=== PATIENT | female | born 1985 | race American Indian/Alaskan Native ===

== ENCOUNTER 2016-10-16 21:58 | Emergency (ER) | payer MEDICAID ==
[2016-10-16 23:00] VITALS: BP 139/92
--- NOTE | 2016-10-19 18:54 | ED Elopement Review ---
ED Pt Elopement review - Call Back decision Pt Call Back Decision: Pt to F/U with PMD
== END 2016-10-17 05:10 | disposition left against medical advice (07) ==
LOC: ED 21:58
DX: M25.572 Pain in left ankle and joints of left foot (principal); Z88.8 Allergy status to other drugs, medicaments and biological substances; Z53.21 Procedure and treatment not carried out due to patient leaving prior to being seen by health care provider

== ENCOUNTER 2017-03-19 08:07 | Inpatient (IN) | payer MEDICAID ==
[2017-03-19] MEDS ORDERED: PEPCID IV ONE ×2 (20:16→23:00)
[2017-03-19] MEDS ORDERED: ZOFRAN IV PRN (20:16)
--- NOTE | 2017-03-19 20:21 | History and Physical Report ---
History of Present Illness Date of admission: 03/19/17 Chief complaint: intractable nausea and vomiting History of present illness: Pt is a 31 year old female DORIS 11/01/17 at 7w5d who called the sales and service consultant MD around 7:58 pm on 03/19/17 complaining of severe nausea and vomiting prohibiting her from tolerating any food or liquid today including water. She was prescribed Phenergan at home which she was taking with no relief. She does admit a h/o GERD which has not yet been treated. She has had one visit on 03/16/17, and her is complicated by genital herpes, abnormal pap smear and a h/o demise with PIH and placental abruption for which she has been referred to [facility]. 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: abnormal PAP smear, herpes Family/Genetic History: diabetes, hypertension, cancer Social history: no significant social history - Obstetrical History Expected Date of Delivery: 11/01/17 Actual Gestation: 7 Week(s) 5 Day(s) : 3 Para: 1 Hx # Term Pregnancies: 0 Number of Pregnancies: 1 Spontaneous Abortions: 1 Induced : 0 Number of Living Children: 0 Medications and Allergies Allergies Allergy/AdvReac Type Severity Reaction Status Date / Time NSAIDS (Non-Steroidal Allergy Unknown Verified 04/06/16 03:44 Anti-Inflamma Androgenic Anabolic Steroid AdvReac Unknown Verified 04/06/16 03:44 Home Medications Medication Instructions Recorded Confirmed Last Taken Type Gabapentin [Neurontin] 300 mg PO TID #90 capsule 09/07/15 04/06/16 Unknown Rx Nitrofurantoin [place]/M-Cryst 100 mg PO Q12HR #20 capsule 04/06/16 Unknown Rx [Macrobid CAP] HYDROcodone/APAP 5-325 [[place] 1 each PO Q6HR PRN #15 tablet 04/07/16 Unknown Rx 5/325] Levofloxacin [Levaquin] 750 mg PO QDAY #7 tablet 04/07/16 Unknown Rx Review of Systems All systems: negative (per HPI) Results Result Diagrams: 03/19/17 21:38 03/19/17 21:38 All other labs normal. Assessment and Plan A: IUP at 7w5d Hyperemesis P: Admit for observation. Check electrolytes IV hydration Ultrasound for viability.
[2017-03-19] MEDS ORDERED: KCL 10MEQ/100ML 10 MEQ/100 ML BAG IV SCH (21:00)
[2017-03-19 22:18] LABS: Anion Gap 20 mmol/L; BUN/Creatinine Ratio 11.11; Blood Urea Nitrogen 10 mg/dL (7-17); Calcium 9.8 mg/dL (8.4-10.2); Carbon Dioxide 24 mmol/L (22-30); Chloride 95.4 mmol/L (98-107); Glucose 123 mg/dL (65-100); Sodium 135 mmol/L (137-145)
[2017-03-19 22:19] LABS: Amylase 121 units/L (27-131); Lipase 48 units/L (13-60)
[2017-03-19 22:39] LABS: Basophils % (Auto) 0.5 % (0.0-1.8); Eosinophils % (Auto) 0.2 % (0.0-4.3); Hematocrit 36.1 % (30.3-42.9); Hemoglobin 12.2 gm/dl (10.1-14.3); Mean Corpuscular HGB Conc 34 % (30-34); Mean Corpuscular Hemoglobin 31 pg (28-32); Mean Corpuscular Volume 90 fl (79-97); Platelet Count 367 K/mm3 (140-440); Red Cell Distribution Width 13.8 % (13.2-15.2); White Blood Count 12.5 K/mm3 (4.5-11.0)
[2017-03-19] MEDS: PHENERGAN PR SCH (23:03)
[2017-03-19] MEDS: D5LR 1,000 ML IV SCH (23:04)
[2017-03-19] MEDS: REGLAN IV SCH (23:04)
[2017-03-20 00:11] LABS: Bilirubin,Urine NEG (Negative); Blood,Urine NEG (Negative); Ketones,Urine NEG (Negative); Leukocyte Esterase,Urine NEG (Negative); Mucus,Urine FEW /HPF; Nitrite,Urine NEG (Negative)
[2017-03-20] MEDS: D5LR 1,000 ML IV SCH ×4 (00:57→19:20)
[2017-03-20] MEDS: REGLAN IV SCH ×3 (06:03→17:58)
[2017-03-20] MEDS: PHENERGAN PR SCH ×3 (06:04→17:58)
--- NOTE | 2017-03-20 07:53 | Admit Criteria Form ---
Admission Criteria Documentation: HYPEREMESIS GRAVIDARUM Clinical Indications for Admission to Inpatient Care ( Place 'X' for any and all applicable criteria): Admission is indicated for ANY ONE of the following (1)(2)(3) [ ]I. Suspected serious gastrointestinal pathology (eg, acute fatty liver of , pancreatitis) as indicated by ANY ONE of the following (5)(6): [ ]a) Significantly elevated serum transaminase or bilirubin (eg, 2 or 3 times normal) [ ]b) Elevated serum amylase or lipase [ ]c) Elevated serum ammonia level [ ]d) Coagulopathy (eg, elevated PT, PTT) [ ]e) Ascites [ ]f) Encephalopathy [X]II. Inpatient admission required rather than observation care (Also use Hyperemesis Gravidarum: Observation Care as appropriate) because of ANY ONE of the following (7) : [ ]a) Hemodynamic instability develops [X]b) Vomiting that is severe or persistent [ ]c) Severe electrolyte abnormalities requiring inpatient care [ ]d) Metabolic disorder (eg, acidosis) that is severe or persistent [ ]e) Acute renal failure [ ]f) Altered mental status or medication side effects (eg, antiemetics) that are severe or persistent [ ]g) compromise identified [ ]h) Hydatidiform mole identified [ ]i) IV fluid to replace significant ongoing (eg, for over 24 hrs) losses (> 3 L/m2 per day) [ ]j) Parenteral nutrition regimen that must be implemented on inpatient basis [ ]k) Other condition, treatment or monitoring requiring inpatient admission Extended stay beyond goal length of stay may be needed for(2)(13): [ ]a) Severe electrolyte disorder that persists [ ]b) Severe malnutrition [ ]c) Acute fatty liver of [ ]d) Hydatidiform mole [ ]e) Wernicke encephalopathy or other BUTTON CUTTING MACHINE OPERATOR complication (eg, osmotic demyelination syndrome) [ ]f) compromise The original [employer] content created by [employer] has been revised. The portions of the content which have been revised are identified through the use of italic text or in bold, and [facility] has neither reviewed nor approved the modified material. All other unmodified content is copyright [facility]. Please see references footnoted in the original [facility] edition 2016 Admission Criteria Met: Yes
--- NOTE | 2017-03-20 08:53 | Ultrasound Report ---
ULTRASOUND OB LESS THAN 14 WEEKS FETUS HISTORY: Assess viability, positive test, beta hCG level [id number] FINDINGS: Transabdominal ultrasound was performed. The uterus is anteverted and measures 12.4 x 5.2 x 6.8 cm. No uterine mass is detected. Normal cervix. An intrauterine gestational sac containing a small pole and yolk sac is identified. Payette-rump length 8.0 mm which correlates with a 6 week, 5 day . Estimated due date is 11/08/17. No subchorionic hemorrhage is appreciated. The placenta has not yet developed. The right ovary measures 3.8 x 2.1 x 2.4 cm. The left ovary measures 4.1 x 3.2 x 3.5 cm. There is a hypoechoic area in the left ovary measuring 2 cm which probably represents a corpus luteum cyst. No pelvic fluid collection. Images through the bladder are unremarkable. IMPRESSION: Viable, single interuterine dated at 6 weeks, 5 days. No acute abnormality is appreciated.
[2017-03-20] MEDS: PRENATAL VITAMIN PO SCH (11:58)
--- NOTE | 2017-03-20 13:35 | Progress Note ---
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 Subjective - Subjective Date of service: 03/20/17 Principal diagnosis: hyperemesis Interval history: 31y/o @ 7+6 weeks admitted for hyperemesis. Patient denies any vomiting this am. She is tolerating sips and chips. Patient reports: no new complaints Objective - Vital Signs Vital Signs: Vital Signs - 12hr 03/20/17 03/20/17 04:10 08:35 Temperature 98.3 F 98.5 F Pulse Rate [ 77 76 Right From Monitor] Respiratory 77 H 18 Rate Blood Pressure 114/59 100/53 [Right Arm] - Labs Labs: Abnormal Labs 03/19/17 03/19/17 03/19/17 21:38 21:38 21:38 WBC 12.5 H Seg Neutrophils % 72.5 H Seg Neutrophils # 9.1 H Sodium 135 L Chloride 95.4 L Glucose 123 H HCG, Quant [id number] H Laboratory Results - last 24 hr 03/19/17 03/19/17 03/19/17 21:38 21:38 21:38 WBC 12.5 H RBC 4.00 Hgb 12.2 Hct 36.1 MCV 90 MCH 31 MCHC 34 RDW 13.8 Plt Count 367 Lymph % (Auto) 21.0 [place] % (Auto) 5.8 Eos % (Auto) 0.2 Baso % (Auto) 0.5 Lymph # 2.6 [place] # 0.7 Eos # 0.0 Baso # 0.1 Seg Neutrophils % 72.5 H Seg Neutrophils # 9.1 H Sodium Potassium Chloride Carbon Dioxide Anion Gap BUN Creatinine Estimated GFR BUN/Creatinine Ratio Glucose Calcium Amylase 121 Lipase 48 TSH 0.847 HCG, Quant Urine Color Urine Turbidity Urine pH Ur Specific [place] Urine Protein Urine Glucose (UA) Urine Ketones Urine Blood Urine Nitrite Urine Bilirubin Urine Urobilinogen Ur Leukocyte Esterase Urine WBC (Auto) Urine RBC (Auto) U Epithel Cells (Auto) Amorphous Crystals Urine Mucus Hepatitis A IgM Ab Hep Bs Antigen Hep B Core IgM Ab Hepatitis C Antibody 03/19/17 03/19/17 03/19/17 21:38 21:38 23:30 WBC RBC Hgb Hct MCV MCH MCHC RDW Plt Count Lymph % (Auto) [place] % (Auto) Eos % (Auto) Baso % (Auto) Lymph # [place] # Eos # Baso # Seg Neutrophils % Seg Neutrophils # Sodium 135 L Potassium 4.0 Chloride 95.4 L Carbon Dioxide 24 Anion Gap 20 BUN 10 Creatinine 0.9 Estimated GFR > 60 BUN/Creatinine Ratio 11.11 Glucose 123 H Calcium 9.8 Amylase Lipase TSH HCG, Quant 59542 H Urine Color Yellow Urine Turbidity Cloudy Urine pH 7.0 Ur Specific [place] 1.027 Urine Protein 30 mg/dl Urine Glucose (UA) Neg Urine Ketones Neg Urine Blood Neg Urine Nitrite Neg Urine Bilirubin Neg Urine Urobilinogen 2.0 Ur Leukocyte Esterase Neg Urine WBC (Auto) 2.0 Urine RBC (Auto) 9.0 U Epithel Cells (Auto) 12.0 Amorphous Crystals Few Urine Mucus Few Hepatitis A IgM Ab Non-reactive Hep Bs Antigen Non-reactive Hep B Core IgM Ab Non-reactive Hepatitis C Antibody Non-reactive 03/19/17 03/20/17 23:30 12:15 WBC RBC Hgb Hct MCV MCH MCHC RDW Plt Count Lymph % (Auto) [place] % (Auto) Eos % (Auto) Baso % (Auto) Lymph # [place] # Eos # Baso # Seg Neutrophils % Seg Neutrophils # Sodium Potassium Chloride Carbon Dioxide Anion Gap BUN Creatinine Estimated GFR BUN/Creatinine Ratio Glucose Calcium Amylase Lipase TSH HCG, Quant Urine Color Urine Turbidity Urine pH Ur Specific [place] Urine Protein Urine Glucose (UA) Urine Ketones Negative Neg Urine Blood Urine Nitrite Urine Bilirubin Urine Urobilinogen Ur Leukocyte Esterase Urine WBC (Auto) Urine RBC (Auto) U Epithel Cells (Auto) Amorphous Crystals Urine Mucus Hepatitis A IgM Ab Hep Bs Antigen Hep B Core IgM Ab Hepatitis C Antibody
[2017-03-20] MEDS: PEPCID PO SCH (16:57)
[2017-03-21] MEDS: REGLAN IV SCH ×2 (00:46→07:08)
[2017-03-21] MEDS: PHENERGAN PR SCH ×2 (00:46→07:08)
[2017-03-21] MEDS: D5LR 1,000 ML IV SCH (03:30)
[2017-03-21] MEDS: PEPCID PO SCH (07:08)
[2017-03-21] MEDS: PRENATAL VITAMIN PO SCH (10:00)
--- NOTE | 2017-03-21 12:16 | Progress Note ---
Assessment and Plan IUP 7 weeks with hyperemesis Day #2 s/p IV hydration with anti-emetic therapy tolerating oral will advance diet no vomiting for 2 days will change to po antiemetics if tolerating criteria met for discharge and f/u in clinic tomorrow Subjective - Subjective Date of service: 03/21/17 Principal diagnosis: hyperemesis Interval history: 31y/o @ 7+6 weeks admitted for hyperemesis. Patient denies any vomiting this am.tolerating liquid diet Patient reports: no new complaints Objective - Vital Signs Vital Signs: Vital Signs - 12hr 03/21/17 03/21/17 01:16 05:59 Temperature 98.9 F 98.3 F Pulse Rate [ 56 L 85 Right From Monitor] Respiratory 17 20 Rate Blood Pressure 118/67 115/76 [Right Arm] - Exam Breasts: deferred Cardiovascular: Regular rate, Normal S1 Lungs: Clear to auscultation, Normal air movement Abdomen: Present: normal appearance, soft, normal bowel sounds. Absent: distention, tenderness Vulva: both: normal Uterus: Present: normal, firm. Absent: bogginess, tenderness - Labs Labs: Abnormal Labs 03/19/17 03/19/17 03/19/17 21:38 21:38 21:38 WBC 12.5 H Seg Neutrophils % 72.5 H Seg Neutrophils # 9.1 H Sodium 135 L Chloride 95.4 L Glucose 123 H HCG, Quant [id number] H Laboratory Results - last 24 hr 03/20/17 03/20/17 12:15 23:10 Urine Ketones Neg Neg
[2017-03-21 12:27] VITALS: BP 115/71
--- NOTE | 2017-03-21 12:31 | Discharge Summary ---
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 Reason for admission: other (Hyperemesis) Discharge diagnosis: other (Hyperemesis gravidarum on antiemetics ) Condition at discharge: Good Disposition: DC-01 TO HOME OR SELFCARE Plan - Provider Discharge Summary Activity: routine Diet: routine Instructions: routine Additional instructions: [] Smoking cessation referral if applicable(refer to patient education folder for contact #) [] Refer to [facility]'s [facility] Booklet Call your doctor immediately for: * Fever > 100.5 * Heavy vaginal bleeding ( >1 pad per hour) * Severe persistent headache * Shortness of breath * Reddened, hot, painful area to leg or breast * Drainage or odor from incision. * Keep incision clean and dry at all times and follow doctor's instructions regarding bathing/showering - Follow up plan Follow up: PRIMARY CARE, [Primary Care Provider] - 48 Hours
[2017-03-21] MEDS ORDERED: REGLAN PO PRN (13:43)
[2017-03-21] MEDS ORDERED: PHENERGAN PO SCH (14:00)
== END 2017-03-21 18:04 | disposition home or self-care (01) | DRG 781 ==
LOC: OB 08:07 → 3A 20:13 → UNDOADMOB 20:13 → OB 21:26 → OBSVTOIN 03-20 08:07
PROVIDERS: ADMIT Obstetrics & Gynecology; ATTEND Obstetrics & Gynecology
DX: O21.0 Mild hyperemesis gravidarum (principal); O98.311 Other infections with a predominantly sexual mode of transmission complicating pregnancy, first trimester; A60.00 Herpesviral infection of urogenital system, unspecified; O99.611 Diseases of the digestive system complicating pregnancy, first trimester; K21.9 Gastro-esophageal reflux disease without esophagitis; Z88.6 Allergy status to analgesic agent; Z3A.01 Less than 8 weeks gestation of pregnancy
CPT/HCPCS: 36415; 76801; 80048; 80074; 81001; 82010; 82150; 83690; 84443; 84702; 85025; G0378; G0379; J1720; J2765; J7121; Q0169

== ENCOUNTER 2017-03-30 11:07 | Emergency (ER) | payer MEDICAID | END 2017-03-30 16:34 | disposition left against medical advice (07) | LOC: ED 11:07 | DX: O21.9 Vomiting of pregnancy, unspecified (principal); Z3A.09 9 weeks gestation of pregnancy; Z53.21 Procedure and treatment not carried out due to patient leaving prior to being seen by health care provider ==

== ENCOUNTER 2017-04-03 11:52 | Emergency (ER) | payer MEDICAID ==
[2017-04-03] MEDS ORDERED: NACL 0.9% 1000 ML 1,000 ML IV ONE ×2 (14:33→17:28)
[2017-04-03] MEDS ORDERED: ZOFRAN IV ONE (14:34)
--- NOTE | 2017-04-03 14:34 | Emergency Department Report ---
Chief Complaint: Nausea/Vomiting/Diarrhea Stated Complaint: NAUSE 10WKS PREG Time Seen by Provider: 04/03/17 14:30 - HPI History of Present Illness: This is a 31-year-old female presents at 10 weeks gestation complaining of extreme nausea vomiting and cannot keep anything down. Patient was so by OB she has hyperemesis gravid and is to come to the ED for some fluids. Patient denies any vaginal bleeding or problems with the . She denies fevers/abdominal pain/chest pain or any other problems. - ROS Review of Systems: As noted in HPI - Exam Vital Signs: Vital Signs 04/03/17 11:59 Temperature 98.6 F Pulse Rate 82 Respiratory 20 Rate Blood Pressure 131/71 O2 Sat by Pulse 100 Oximetry Physical Exam: GENERAL: Alert and oriented x3, no apparent distress, Normal Gait, atraumatic. SKIN: Warm and dry, No lesions, No ulceration or induration present. MSE screening note: Focused history and physical exam performed. Due to findings the following was ordered: ED Medical Decision Making - Medical Decision Making CBC, CMP, hCG, IV fluids and Zofran ordered. ED Disposition for MSE Condition: Stable
[2017-04-03 15:39] LABS: Basophils % (Auto) 0.4 % (0.0-1.8); Eosinophils % (Auto) 0.1 % (0.0-4.3); Hematocrit 38.4 % (30.3-42.9); Hemoglobin 12.7 gm/dl (10.1-14.3); Mean Corpuscular HGB Conc 33 % (30-34); Mean Corpuscular Hemoglobin 30 pg (28-32); Mean Corpuscular Volume 91 fl (79-97); Platelet Count 353 K/mm3 (140-440); Red Blood Count 4.22 M/mm3 (3.65-5.03); Red Cell Distribution Width 13.8 % (13.2-15.2)
[2017-04-03] MEDS ORDERED: D5NS 1,000 ML IV SCH (16:00)
[2017-04-03 16:01] LABS: Alanine Aminotransferase 21 units/L (7-56); Albumin 4.4 g/dL (3.9-5); Alkaline Phosphatase 72 units/L (35-129); Amylase 111 units/L (27-131); Creatine Kinase 238 units/L (30-135); Lipase 29 units/L (13-60); Total Protein 8.6 g/dL (6.3-8.2)
[2017-04-03 16:05] LABS: Bilirubin,Direct < 0.2 mg/dL (0-0.2); Bilirubin,Indirect 0.1 mg/dL
[2017-04-03 16:19] LABS: Anion Gap 20 mmol/L; Blood Urea Nitrogen 9 mg/dL (7-17); Calcium 9.8 mg/dL (8.4-10.2); Carbon Dioxide 24 mmol/L (22-30); Chloride 97.4 mmol/L (98-107); Glucose 82 mg/dL (65-100); Potassium 4.2 mmol/L (3.6-5.0); Sodium 137 mmol/L (137-145)
[2017-04-03] MEDS ORDERED: REGLAN IV ONE (16:34)
[2017-04-03] MEDS ORDERED: PEPCID IV ONE (16:44)
--- NOTE | 2017-04-03 16:57 | Emergency Department Report ---
ED N/V/D HPI - General Chief complaint: Nausea/Vomiting/Diarrhea Stated complaint: NAUSE 10WKS PREG Time Seen by Provider: 04/03/17 14:30 Source: patient Mode of arrival: Ambulatory Limitations: No Limitations - History of Present Illness Initial comments: 31-year-old female 31-year-old female presents with complaint of nausea and vomiting. Patient is 10 weeks approximately by LMP . Denies any abdominal pain denies any vaginal bleeding. States she has some discomfort in the abdomen after retching. States she has not been able to tolerate any by mouth food or fluid for approximately 4 days. States that she called her OB/ REINSURANCE ACCOUNTANT Dr. Kapadia who advised her to come to the ER for IV fluid resuscitation. She was accompanied by her mother MD complaint: nausea, vomiting Onset/Timin -: days(s) Description of Vomiting: food contents, watery Associated Abdominal Pain: No Quality: cramping Worsens with: eating Associated Symptoms: weakness - Related Data Previous Rx's Medication Instructions Recorded Last Taken Type Gabapentin [Neurontin] 300 mg PO TID #90 capsule 09/07/15 Unknown Rx Nitrofurantoin [place]/M-Cryst 100 mg PO Q12HR #20 capsule 04/06/16 Unknown Rx [Macrobid CAP] HYDROcodone/APAP 5-325 [[place] 1 each PO Q6HR PRN #15 tablet 04/07/16 Unknown Rx 5/325] Levofloxacin [Levaquin] 750 mg PO QDAY #7 tablet 04/07/16 Unknown Rx Famotidine [Pepcid] 10 mg PO BID #30 tablet 03/21/17 Unknown Rx Metoclopramide [Reglan] 10 mg PO TID #30 tab 03/21/17 Unknown Rx Ondansetron [Zofran Odt] 4 mg PO Q8HR #30 tab.rapdis 03/21/17 Unknown Rx Promethazine [Phenergan TAB] 25 mg PO Q6HR PRN #30 tab 03/21/17 Unknown Rx Doxylamine/Pyridoxine HCl 1 each PO QHS PRN #40 tablet.dr 04/03/17 Unknown Rx [Agustin [place] 10-10 mg Tablet] Ivanna Root [Ivanna] 250 mg PO Q8H PRN #1 bottle 04/03/17 Unknown Rx Allergies Allergy/AdvReac Type Severity Reaction Status Date / Time NSAIDS (Non-Steroidal Allergy Unknown Verified 04/05/17 18:21 Anti-Inflamma Androgenic Anabolic Steroid AdvReac Unknown Verified 04/05/17 18:21 ED Review of Systems ROS: Stated complaint: NAUSE 10WKS PREG Other details as noted in HPI Comment: patient is Constitutional: denies: chills, fever Eyes: denies: eye pain, eye discharge, vision change ENT: denies: ear pain, throat pain Respiratory: denies: cough, shortness of breath, wheezing Cardiovascular: denies: chest pain, palpitations Endocrine: no symptoms reported Gastrointestinal: denies: abdominal pain, nausea, diarrhea Genitourinary: denies: urgency, dysuria, discharge Musculoskeletal: denies: back pain, joint swelling, arthralgia Skin: denies: rash, lesions Neurological: denies: headache, weakness, paresthesias Psychiatric: denies: anxiety, depression Hematological/Lymphatic: denies: easy bleeding, easy bruising ED Past Medical Hx - Past Medical History Previous Medical History?: Yes Hx Heart Attack/AMI: No Hx Congestive Heart Failure: No Hx Diabetes: No Hx Asthma: No Hx COPD: No Hx HIV: No Additional medical history: fibromyaglia. one kidney right - Surgical History Past Surgical History?: Yes Hx Open Heart Surgery: No Hx Cholecystectomy: No Hx Appendectomy: No Hx Breast Surgery: No Additional Surgical History: left kidney donated 2010. d&c 2011. umbilical hernia repair 2010. - Social History Smoking Status: Never Smoker Substance Use Type: Prescribed - Medications Home Medications: Home Medications Medication Instructions Recorded Confirmed Last Taken Type Gabapentin [Neurontin] 300 mg PO TID #90 capsule 09/07/15 03/21/17 Unknown Rx Nitrofurantoin [place]/M-Cryst 100 mg PO Q12HR #20 capsule 04/06/16 03/21/17 Unknown Rx [Macrobid CAP] HYDROcodone/APAP 5-325 [[place] 1 each PO Q6HR PRN #15 tablet 04/07/16 03/21/17 Unknown Rx 5/325] Levofloxacin [Levaquin] 750 mg PO QDAY #7 tablet 04/07/16 03/21/17 Unknown Rx Famotidine [Pepcid] 10 mg PO BID #30 tablet 03/21/17 Unknown Rx Metoclopramide [Reglan] 10 mg PO TID #30 tab 03/21/17 Unknown Rx Ondansetron [Zofran Odt] 4 mg PO Q8HR #30 tab.rapdis 03/21/17 Unknown Rx Promethazine [Phenergan TAB] 25 mg PO Q6HR PRN #30 tab 03/21/17 Unknown Rx Doxylamine/Pyridoxine HCl 1 each PO QHS PRN #40 tablet.dr 04/03/17 Unknown Rx [Agustin Dr 10-10 mg Tablet] Ivanna Root [Ivanna] 250 mg PO Q8H PRN #1 bottle 04/03/17 Unknown Rx ED Physical Exam - General Limitations: No Limitations General appearance: alert, in no apparent distress - Head Head exam: Present: atraumatic, normocephalic - Eye Eye exam: Present: normal appearance, PERRL, EOMI - ENT ENT exam: Present: mucous membranes moist - Neck Neck exam: Present: normal inspection - Respiratory Respiratory exam: Present: normal lung sounds bilaterally. Absent: respiratory distress - Cardiovascular Cardiovascular Exam: Present: regular rate, normal rhythm. Absent: systolic murmur, diastolic murmur, rubs, gallop - GI/Abdominal GI/Abdominal exam: Present: soft, normal bowel sounds - External exam: Present: normal external exam Speculum exam: Present: normal speculum exam Bi-manual exam: Present: normal bi-manual exam - Extremities Exam Extremities exam: Present: normal inspection - Back Exam Back exam: Present: normal inspection - Neurological Exam Neurological exam: Present: alert, oriented X3, CN II-XII intact, normal gait - Psychiatric Psychiatric exam: Present: normal affect, normal mood - Skin Skin exam: Present: warm, dry, intact, normal color. Absent: rash ED Course Vital Signs 04/03/17 04/03/17 04/03/17 11:59 16:27 21:28 Temperature 98.6 F 97.3 F L Pulse Rate 82 69 77 Respiratory 20 18 16 Rate Blood Pressure 131/71 Blood Pressure 109/68 129/82 [Right] O2 Sat by Pulse 100 98 100 Oximetry ED Medical Decision Making - Lab Data Result diagrams: 04/03/17 15:21 04/03/17 15:21 - Medical Decision Making A/P: Nausea and vomiting of , first trimester 1-patient experienced significant relief of nausea with doses of Zofran and Reglan. Patient states she has been taking these at home for the last few weeks with minimal relief of her nausea. IV doses in the ED gave patient significant relief. Patient resuscitated with 3 L of IV fluid and felt significantly better afterward. 2-Before discharge patient tolerating by mouth fluid and food without difficulty. No longer feels nauseous. 3-I discussed case with Dr. Moore, will give patient prescription for Diclegis, Ivanna when necessary as antiemetics 4- I discussed case with Dr. Kapadia, as patient's electrolytes and ultrasound are unremarkable and patient is now tolerating by mouth and feels significantly better I will discharge her and she will follow-up with Dr. Kapadia in outpatient setting. Critical care attestation.: If time is entered above; I have spent that time in minutes in the direct care of this critically ill patient, excluding procedure time. ED Disposition Clinical Impression: Nausea and vomiting during Qualifiers: Weeks of gestation: 10 weeks Qualified Code(s): Z3A.10 - 10 weeks gestation of Disposition: DC- TO HOME OR SELFCARE Is pt being admited?: No Does the pt Need Aspirin: No Condition: Stable Instructions: Doxylamine/Pyridoxine (By mouth), Morning Sickness (ED) Prescriptions: Doxylamine/Pyridoxine HCl [Diclegis Dr 10-10 mg Tablet] 1 each PO QHS PRN #40 tablet.dr PRN Reason: Nausea Ivanna Root [Ivanna] 250 mg PO Q8H PRN #1 bottle PRN Reason: Nausea Referrals: RUPERT KAPADIA MD [Staff Physician] - 3-5 Days Forms: Accompanied Note, Work/School Release Form(ED)
[2017-04-03 17:54] LABS: Bilirubin,Urine NEG (Negative); Blood,Urine SM (Negative); Ketones,Urine 80 mg/dL (Negative); Leukocyte Esterase,Urine NEG (Negative); Mucus,Urine 2+ /HPF; Nitrite,Urine NEG (Negative)
--- NOTE | 2017-04-03 18:02 | Ultrasound Report ---
FINAL REPORT EXAM: US OB TRANSVAGINAL HISTORY: severe nausea, abd pain TECHNIQUE: Endovaginal ultrasound was performed in multiple grayscale sonographic images were obtained of the uterus and adnexa PRIORS: Transabdominal ultrasound from 04/03/2017 FINDINGS: There is a gestational sac in the uterus with a pole that measures approximately 2.3 centimeters in length. heart rate was detected at 167 beats per minute. Yolk sac is identified. Right ovary measures approximately 2.5 x 2.1 x 2.7 centimeters. Left ovary measures approximately 3.6 x 2.5 x 3.3 centimeters. IMPRESSION: 1. Viable single intrauterine with estimated gestational age 9 weeks 1 day. Estimated due date 11/05/2017. Continued follow-up is recommended. 2. Please refer to report from transabdominal pelvic ultrasound from 04/03/2017 for additional information.
--- NOTE | 2017-04-03 18:07 | Ultrasound Report ---
FINAL REPORT EXAM: US OB \T\lt; = 14 WEEKS FETUS HISTORY: severe nausea, TECHNIQUE: Transabdominal pelvic ultrasound was performed in multiple grayscale sonographic images were obtained of uterus and adnexa PRIORS: Endovaginal ultrasound from 04/03/2017 FINDINGS: Uterus measures approximately 11.5 x 9 x 7.6 centimeters. Gestational sac is noted with a pole that measures approximately 2.5 centimeters in length. heart rate was detected at 168 beats per minute. Ovaries were not identified during the exam. IMPRESSION: 1. Viable single intrauterine with estimated gestational age nine weeks 2 days. Estimated due date 11/04/2017. Continued follow-up is recommended. 2. Please refer to report from endovaginal ultrasound from 04/03/2017 for additional information.
[2017-04-03 21:29] VITALS: BP 129/82
== END 2017-04-03 21:30 | disposition home or self-care (01) ==
LOC: ED 11:52
DX: O21.9 Vomiting of pregnancy, unspecified (principal); Z3A.10 10 weeks gestation of pregnancy
CPT/HCPCS: 36415; 76801; 76817; 80048; 80074; 81001; 82150; 82550; 82805; 83690; 83735; 84702; 84703; 85025; 87086; 96361; 96374; 96375; 99284; J2405; J2765; J7030; J7042

== ENCOUNTER 2017-04-05 17:53 | Inpatient (IN) | payer MEDICAID ==
[2017-04-05 18:42] LABS: Basophils % (Auto) 0.2 % (0.0-1.8); Eosinophils % (Auto) 0.2 % (0.0-4.3); Hematocrit 34.7 % (30.3-42.9); Hemoglobin 11.5 gm/dl (10.1-14.3); Mean Corpuscular HGB Conc 33 % (30-34); Mean Corpuscular Hemoglobin 30 pg (28-32); Mean Corpuscular Volume 92 fl (79-97); Platelet Count 347 K/mm3 (140-440); Red Blood Count 3.78 M/mm3 (3.65-5.03); Red Cell Distribution Width 13.7 % (13.2-15.2); White Blood Count 10.3 K/mm3 (4.5-11.0)
[2017-04-05 19:02] LABS: Anion Gap 20 mmol/L; Blood Urea Nitrogen 6 mg/dL (7-17); Calcium 9.4 mg/dL (8.4-10.2); Carbon Dioxide 24 mmol/L (22-30); Chloride 97.4 mmol/L (98-107); Glucose 85 mg/dL (65-100); Sodium 137 mmol/L (137-145)
[2017-04-05] MEDS ORDERED: ZOFRAN IV PRN (22:26)
[2017-04-05] MEDS ORDERED: INFUVITE 10 ML in D5LR 1,000 ML IV ONE (22:26)
[2017-04-05] MEDS: PHENERGAN PR SCH (23:00)
[2017-04-05] MEDS: REGLAN IV SCH ×2 (23:00→23:01)
[2017-04-05] MEDS: D5LR 1,000 ML IV SCH (23:01)
[2017-04-05 23:43] LABS: Amylase 99 units/L (27-131); Anion Gap 14 mmol/L; BUN/Creatinine Ratio 8.75; Blood Urea Nitrogen 7 mg/dL (7-17); Calcium 9.6 mg/dL (8.4-10.2); Carbon Dioxide 30 mmol/L (22-30); Chloride 95.7 mmol/L (98-107); Glucose 83 mg/dL (65-100); Lipase 32 units/L (13-60); Potassium 3.8 mmol/L (3.6-5.0); Sodium 136 mmol/L (137-145)
[2017-04-06] MEDS: D5LR 1,000 ML IV SCH ×3 (00:31→16:30)
[2017-04-06 02:28] LABS: Bacteria,Urine 1+ /HPF (Negative); Bilirubin,Urine Negative (Negative); Blood,Urine Trace (Negative); Ketones,Urine POS (Negative); Leukocyte Esterase,Urine Negative (Negative); Nitrite,Urine Negative (Negative); Urobilinogen,Urine 0.2 mg/dL (<2.0)
[2017-04-06 02:29] LABS: Mucus,Urine Few /HPF
[2017-04-06] MEDS: PHENERGAN PR SCH ×4 (04:00→22:07)
[2017-04-06] MEDS: REGLAN IV SCH ×3 (06:00→18:30)
[2017-04-06] MEDS ORDERED: PRENATAL VITAMIN PO SCH (10:00)
--- NOTE | 2017-04-06 12:36 | Admit Criteria Form ---
Admission Criteria Documentation: HYPEREMESIS GRAVIDARUM Clinical Indications for Admission to Inpatient Care ([place]/check or initial the applicable condition/criteria) Admission is indicated for 1 or more of the following 1)(2)(3)(4)(5) [ ]I. Suspected serious gastrointestinal pathology (eg, acute fatty liver of , pancreatitis) as indicated by 1 or more of the following (6)(7): [ ]a) Significantly elevated serum transaminase or bilirubin (e.g., greater than 10 times normal) [ ]b) Significantly elevated bilirubin (eg greater than 4mg/dL (68 micromoles/L) [ ]c) Significantly elevated serum amylase or lipase (eg greater than 5 times normal) [ ]d) Elevated serum ammonia level [ ]e) Coagulopathy (e.g., elevated PT, PTT) [ ]f) Ascites [ ]g) Encephalopathy [X]II. Inpatient admission required [A] rather than observation care (See use Hyperemesis Gravidarum: Observation Care as appropriate) because of 1 or more of the following (4)(5)(8): [ ]a) Hemodynamic instability [X ]b) Vomiting that is severe or persistent [ ]c) Dehydration that is severe or persistent [ ]d) Severe electrolyte abnormalities requiring inpatient care [ ]e) Metabolic disorder (e.g., hyperchloremic alkalosis) that is severe or persistent [ ]f) Acute renal failure [ ]g) Significant neurologic findings (e.g., ataxia, nysthagmus, Altered mental status that is severe or persistent) [ ]h) compromise identified [ ]i) Hydatidiformmole identified [ ]j) Other condition, treatment or monitoring requiring inpatient admission Extended stay beyond goal length of stay may be needed for(1)(20): [ ]a) Severe electrolyte disorder that persists [ ]b) Malnutrition(10) [ ]c) Acute fatty liver of (6)(7) [ ]d) Hydatidiform mole (2) [ ]e) Wernicke encephalopathy or other 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 The portions of the content which have been revised are identified through the use of italic text or in bold, and [facility] has neither reviewed nor approved the modified material. All other unmodified content is copyright [facility]. Please see references footnoted in the original [facility] edition 2017 Admission Criteria Met: Yes
--- NOTE | 2017-04-06 17:50 | History and Physical Report ---
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 denies: smoking, alcohol abuse, prescription drug abuse - Obstetrical History : 3 Medications and Allergies Allergies Allergy/AdvReac Type Severity Reaction Status Date / Time NSAIDS (Non-Steroidal Allergy Unknown Verified 04/05/17 18:21 Anti-Inflamma Androgenic Anabolic Steroid AdvReac Unknown Verified 04/05/17 18:21 Home Medications Medication Instructions Recorded Confirmed Last Taken Type Gabapentin [Neurontin] 300 mg PO TID #90 capsule 09/07/15 04/05/17 Unknown Rx Nitrofurantoin [place]/M-Cryst 100 mg PO Q12HR #20 capsule 04/06/16 04/05/17 Unknown Rx [Macrobid CAP] HYDROcodone/APAP 5-325 [[place] 1 each PO Q6HR PRN #15 tablet 04/07/16 04/05/17 Unknown Rx 5/325] Levofloxacin [Levaquin] 750 mg PO QDAY #7 tablet 04/07/16 04/05/17 Unknown Rx Famotidine [Pepcid] 10 mg PO BID #30 tablet 03/21/17 04/05/17 Unknown Rx Metoclopramide [Reglan] 10 mg PO TID #30 tab 03/21/17 04/05/17 Unknown Rx Ondansetron [Zofran Odt] 4 mg PO Q8HR #30 tab.rapdis 03/21/17 04/05/17 Unknown Rx Promethazine [Phenergan TAB] 25 mg PO Q6HR PRN #30 tab 03/21/17 04/05/17 Rx Doxylamine/Pyridoxine HCl 1 each PO QHS PRN #40 tablet. 04/03/17 04/05/17 Unknown Rx [Agustin Corbett 10-10 mg Tablet] Ivanna Root [Ivanna] 250 mg PO Q8H PRN #1 bottle 04/03/17 04/05/17 Unknown Rx Active Meds: Active Medications Dextrose/Lactated Ringer's (D5lr) 1,000 mls @ 500 mls/hr IV DIRECT LITTLE Stop: 04/07/17 00:25 Last Admin: 04/06/17 00:31 Dose: 500 mls/hr Dextrose/Lactated Ringer's (D5lr) 1,000 mls @ 150 mls/hr IV DIRECT LITTLE Last Admin: 04/06/17 08:15 Dose: 150 mls/hr Metoclopramide HCl (Reglan) 10 mg IV Q6H LTITLE Last Admin: 04/06/17 12:30 Dose: 10 mg Multivitamins/Iron/Calcium ( Vitamin) 1 each PO QDAY LITTLE Ondansetron HCl (Zofran) 4 mg IV Q6H PRN PRN Reason: N/V unrelieved by Reglan Last Admin: 04/06/17 05:08 Dose: 4 mg Promethazine HCl (Phenergan) 25 mg MN Q6H LITTLE Last Admin: 04/06/17 12:30 Dose: 25 mg - Vital Signs Vital signs: Vital Signs Temp Pulse Resp BP Pulse Ox 99.2 F 82 17 119/76 100 04/05/17 18:17 04/05/17 18:17 04/05/17 18:17 04/05/17 18:17 04/05/17 18:17 Temp Pulse Resp BP Pulse Ox 99.2 F 70 18 107/18 100 04/06/17 12:00 04/06/17 12:00 04/06/17 12:00 04/06/17 12:00 04/05/17 18:17 - Physical Exam Breasts: Positive: deferred Cardiovascular: Regular rate, Normal S1 Lungs: Positive: Clear to auscultation Abdomen: Positive: normal appearance, soft, normal bowel sounds Genitourinary (Female): Positive: normal external genitalia, normal perenium Vulva: both: normal Vagina: Positive: normal moisture Uterus: Positive: normal size, normal contour Anus/Rectum: Positive: normal perianal skin Extremities: Positive: normal Deep Tendon Reflex Grade: Normal +2 Results Result Diagrams: 04/05/17 18:25 04/05/17 22:57 Abnormal lab results 04/05/17 Range/Units 22:57 Sodium 136 L (137-145) mmol/L Chloride 95.7 L (98-107) mmol/L All other labs normal. Assessment and Plan a/P IUP 9 weeks hyperemesis gravidarum IVF clears advance diet as tolerated nutrition consult anti nausea meds
[2017-04-07] MEDS: D5LR 1,000 ML IV SCH (00:11)
[2017-04-07] MEDS: REGLAN IV SCH (02:17)
--- NOTE | 2017-04-07 06:53 | Progress Note ---
Assessment and Plan a/P IUP 9 weeks hyperemesis gravidarum change IVF to po clears advance diet as tolerated nutrition consult anti nausea meds po ketones neg if tolerating diet and po today will send home tomorrow Subjective - Subjective Date of service: 04/07/17 Principal diagnosis: hyperemesis gravidarum Interval history: 31 yo at 9 weeks with n/v been to ER several times in last month hospitalized several weeks admitted for anti nausea meds and control Patient reports: no new complaints Objective - Vital Signs Vital Signs: Vital Signs - 12hr 04/06/17 04/07/17 19:10 04:25 Temperature 98.2 F 98.3 F Pulse Rate [ 81 79 Left Brachial] Respiratory 18 16 Rate Blood Pressure 124/64 116/79 [Left Arm] - Exam Breasts: deferred Cardiovascular: Regular rate, Normal S1 Lungs: Clear to auscultation, Normal air movement Abdomen: Present: normal appearance, soft, normal bowel sounds. Absent: distention, tenderness, guarding Vulva: both: normal Uterus: Present: normal, firm - Labs Labs: Abnormal Labs 04/05/17 22:57 Sodium 136 L Chloride 95.7 L Laboratory Results - last 24 hr 04/06/17 04/06/17 12:45 Unknown Urine Ketones 20 Neg
[2017-04-07] MEDS: PHENERGAN PO SCH ×3 (08:15→20:04)
[2017-04-07] MEDS: REGLAN PO SCH ×3 (08:15→20:04)
[2017-04-07] MEDS ORDERED: TYLENOL PO PRN (19:47)
[2017-04-08] MEDS: REGLAN PO SCH ×3 (02:01→14:15)
[2017-04-08] MEDS: PHENERGAN PO SCH ×4 (02:01→21:13)
--- NOTE | 2017-04-08 07:19 | Discharge Summary ---
Providers - Providers Date of Admission: 04/05/17 22:26 Date of discharge: 04/09/17 Attending physician: RUPERT OHARA MD Primary care physician: RUPERT OHARA MD Hospitalization Reason for admission: other (Hyperemesis gravidarum) Discharge diagnosis: other (n/v in , first trimester) Hospital course: Patient was admitted for n/v and weakness, antiemetics iv given and changed to po. Patient tolerated po meds and diet regular. She was sent home on scripts with followup in office in 1-2 weeks. Patient has been previousl counseled on diet in previous admission. Condition at discharge: Good Disposition: DC-01 TO HOME OR SELFCARE Plan - Discharge Medications Prescriptions: Metoclopramide [Reglan] 10 mg PO Q6HR #60 tab Promethazine [Phenergan TAB] 25 mg PO Q6HR PRN #60 tab PRN Reason: Nausea - Provider Discharge Summary Additional instructions: [] Smoking cessation referral if applicable(refer to patient education folder for contact #) [] Refer to [facility] Booklet Call your doctor immediately for: * Fever > 100.5 * Heavy vaginal bleeding ( >1 pad per hour) * Severe persistent headache * Shortness of breath * Reddened, hot, painful area to leg or breast * Drainage or odor from incision. * Keep incision clean and dry at all times and follow doctor's instructions regarding bathing/showering - Follow up plan Follow up: RUPERT OHARA MD [Primary Care Provider] - 7 Days
--- NOTE | 2017-04-08 10:34 | Progress Note ---
Assessment and Plan a/P IUP 10 weeks hyperemesis gravidarum PO antiemetics advancing diet and tolerating ( one emesis last night) nutrition consult anti nausea meds po ketones neg after nutrition consult d/c home tomorrow if tolerating diet Subjective - Subjective Principal diagnosis: hyperemesis gravidarum Interval history: 31 yo at 9 weeks with n/v been to ER several times in last month hospitalized several weeks admitted for anti nausea meds and control Patient reports: no new complaints Objective - Vital Signs Vital Signs: Vital Signs - 12hr 04/08/17 04/08/17 04/08/17 00:00 04:00 08:05 Temperature 98.7 F 98.6 F 98.9 F Pulse Rate [ 83 80 83 Radial] Respiratory 18 18 18 Rate Blood Pressure 124/65 104/56 126/73 [Left Arm] - Exam Breasts: normal Cardiovascular: Regular rate, Normal S1 Lungs: Clear to auscultation, Normal air movement Abdomen: Present: normal appearance, soft, normal bowel sounds Vulva: both: normal Uterus: Present: normal, firm - Labs Labs: Abnormal Labs 04/05/17 22:57 Sodium 136 L Chloride 95.7 L
[2017-04-09] MEDS: REGLAN PO SCH (03:07)
[2017-04-09] MEDS: PHENERGAN PO SCH (03:08)
[2017-04-09 13:52] VITALS: BP 146/66
--- NOTE | 2017-04-09 17:17 | Progress Note ---
Assessment and Plan a/P IUP 10 weeks hyperemesis gravidarum PO antiemetics diet advanced nutrition consult performed anti nausea meds po phenergan and reglan given d/c home with f/u Subjective - Subjective Date of service: 04/09/17 Principal diagnosis: hyperemesis gravidarum Interval history: 31 yo at 9 weeks with n/v been to ER several times in last month hospitalized several weeks admitted for anti nausea meds and control Patient reports: no new complaints Objective - Vital Signs Vital Signs: Vital Signs - 12hr 04/09/17 04/09/17 07:45 12:00 Temperature 98.3 F 98.0 F Pulse Rate [ 86 84 Radial] Respiratory 18 16 Rate Blood Pressure 112/54 146/66 [Left Arm] - Exam Breasts: normal Cardiovascular: Regular rate, Normal S1 Lungs: Clear to auscultation, Normal air movement Abdomen: Present: normal appearance, soft, normal bowel sounds. Absent: distention, tenderness, guarding Vulva: both: normal Uterus: Present: normal, firm. Absent: bogginess, tenderness FHR: auscultation normal - Labs Labs: Abnormal Labs 04/05/17 22:57 Sodium 136 L Chloride 95.7 L
== END 2017-04-09 13:15 | disposition home or self-care (01) | DRG 781 ==
LOC: ED 17:53 → OB 22:17 → OBSVTOIN 22:26
PROVIDERS: ADMIT Obstetrics & Gynecology; ATTEND Obstetrics & Gynecology
DX: O21.0 Mild hyperemesis gravidarum (principal); Z3A.09 9 weeks gestation of pregnancy; Z88.8 Allergy status to other drugs, medicaments and biological substances
CPT/HCPCS: 36415; 80048; 81001; 82010; 82150; 83690; 84443; 85025; 99285; J2405; J2765; J7121; Q0169

== ENCOUNTER 2017-08-05 18:24 | Outpatient (CLI) | payer MEDICAID ==
[2017-08-05 19:21] LABS: Bacteria,Urine 1+ /HPF (Negative); Bilirubin,Urine NEG (Negative); Blood,Urine NEG (Negative); Ketones,Urine NEG (Negative); Leukocyte Esterase,Urine TR (Negative); Mucus,Urine FEW /HPF; Nitrite,Urine NEG (Negative)
[2017-08-05 19:43] LABS: Hematocrit 28.1 % (30.3-42.9); Hemoglobin 9.6 gm/dl (10.1-14.3); Mean Corpuscular HGB Conc 34 % (30-34); Mean Corpuscular Hemoglobin 32 pg (28-32); Mean Corpuscular Volume 94 fl (79-97); Platelet Count 273 K/mm3 (140-440); Red Blood Count 2.98 M/mm3 (3.65-5.03); Red Cell Distribution Width 13.9 % (13.2-15.2); White Blood Count 11.3 K/mm3 (4.5-11.0)
[2017-08-05 20:01] LABS: Alanine Aminotransferase 9 units/L (7-56); Lactate Dehydrogenase 196 units/L (91-180); Uric Acid 8.2 mg/dL (3.5-7.6)
[2017-08-05 20:49] VITALS: BP 134/79
[2017-08-05] MEDS ORDERED: LACTATED RINGERS 500 ML IV ONE (22:24)
== END 2017-08-05 21:45 | disposition home or self-care (01) ==
LOC: TRG 18:24
PROVIDERS: ATTEND Obstetrics & Gynecology
DX: Z34.92 Encounter for supervision of normal pregnancy, unspecified, second trimester (principal); Z3A.27 27 weeks gestation of pregnancy
CPT/HCPCS: 36415; 81001; 82565; 83615; 84450; 84460; 84550; 85027; 96360; 96372

== ENCOUNTER 2017-08-07 17:03 | Outpatient (CLI) | payer MEDICAID ==
[2017-08-07 18:41] VITALS: BP 130/74
[2017-08-07] MEDS ORDERED: TYLENOL PO ONE (19:00)
[2017-08-07 19:24] LABS: Bilirubin,Urine NEG (Negative); Blood,Urine SM (Negative); Ketones,Urine NEG (Negative); Leukocyte Esterase,Urine NEG (Negative); Mucus,Urine FEW /HPF; Nitrite,Urine NEG (Negative); Urobilinogen,Urine < 2.0 mg/dL (<2.0)
== END 2017-08-07 19:15 | disposition home or self-care (01) ==
LOC: TRG 17:03 → LD 17:04 → TRG 19:15
PROVIDERS: ATTEND Obstetrics & Gynecology
DX: O47.02 False labor before 37 completed weeks of gestation, second trimester (principal); Z3A.26 26 weeks gestation of pregnancy
CPT/HCPCS: 81001

== ENCOUNTER 2017-08-08 21:26 | Outpatient (CLI) | payer MEDICAID ==
[2017-08-08] MEDS ORDERED: LACTATED RINGERS 500 ML IV ONE (21:29)
[2017-08-08] MEDS ORDERED: VISTARIL PO PRN (22:15)
[2017-08-08] MEDS ORDERED: TYLENOL PO ONE (22:48)
[2017-08-08 23:59] LABS: Bilirubin,Urine Negative (Negative); Ketones,Urine Negative (Negative)
[2017-08-08 23:59] LABS: Hematocrit 28.9 % (30.3-42.9); Hemoglobin 9.5 gm/dl (10.1-14.3); Mean Corpuscular HGB Conc 33 % (30-34); Mean Corpuscular Hemoglobin 31 pg (28-32); Mean Corpuscular Volume 95 fl (79-97); Platelet Count 262 K/mm3 (140-440); Red Blood Count 3.04 M/mm3 (3.65-5.03); Red Cell Distribution Width 14.6 % (13.2-15.2); White Blood Count 11.8 K/mm3 (4.5-11.0)
[2017-08-09] LABS: Blood,Urine Negative (Negative); Leukocyte Esterase,Urine Negative (Negative); Nitrite,Urine Negative (Negative); Urobilinogen,Urine < 2.0 mg/dL (<2.0)
[2017-08-09 00:18] LABS: WBC,Urine < 1.0 /HPF (0.0-6.0)
[2017-08-09 00:22] LABS: Alanine Aminotransferase 11 units/L (7-56)
[2017-08-09 05:44] LABS: Lactate Dehydrogenase 222 units/L (91-180); Uric Acid 8.3 mg/dL (3.5-7.6)
[2017-08-14 01:03] VITALS: BP 163/80
== END 2017-08-09 01:15 | disposition home or self-care (01) ==
LOC: TRG 21:26
PROVIDERS: ATTEND Obstetrics & Gynecology
DX: O13.2 Gestational [pregnancy-induced] hypertension without significant proteinuria, second trimester (principal); O26.892 Other specified pregnancy related conditions, second trimester; R51 Headache; Z3A.26 26 weeks gestation of pregnancy
CPT/HCPCS: 36415; 81001; 82565; 83615; 84450; 84460; 84550; 85027

== ENCOUNTER 2017-08-13 15:29 | Inpatient (IN) | payer MEDICAID ==
[2017-08-13] MEDS ORDERED: DEEP SEA NS PRN (16:52)
[2017-08-13] MEDS ORDERED: SUDAFED PO PRN (16:52)
[2017-08-13] MEDS ORDERED: COLACE PO PRN (16:52)
[2017-08-13] MEDS ORDERED: TUCKS PAD TP PRN (16:52)
[2017-08-13] MEDS ORDERED: MILK OF MAGNESIA PO PRN (16:52)
[2017-08-13] MEDS ORDERED: SENOKOT S PO PRN (16:52)
[2017-08-13] MEDS ORDERED: BENADRYL PO PRN (16:52)
[2017-08-13] MEDS ORDERED: MYLICON PO PRN (16:52)
--- NOTE | 2017-08-13 17:07 | History and Physical Report ---
History of Present Illness Date of examination: 08/13/17 Date of admission: today 08/13/17 Chief complaint: sent over from [facility] for direct admitted for severe HTN and BP control History of present illness: This is 31 yo at 27 weeks was seen in the [facility] and noted to have extremely elevated BP. She was sent over for PIH labs, BP monitoring and BP meds. 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 denies: smoking, alcohol abuse, prescription drug abuse - Obstetrical History Expected Date of Delivery: 11/08/17 Actual Gestation: 27 Week(s) 4 Day(s) : 3 Para: 1 Hx # Term Pregnancies: 0 Number of Pregnancies: 1 Spontaneous Abortions: 0 Induced : 0 Number of Living Children: 0 Medications and Allergies Allergies Allergy/AdvReac Type Severity Reaction Status Date / Time NSAIDS (Non-Steroidal Allergy Unknown Verified 04/05/17 18:21 Anti-Inflamma Androgenic Anabolic Steroid AdvReac Unknown Verified 04/05/17 18:21 Home Medications Medication Instructions Recorded Confirmed Last Taken Type Gabapentin [Neurontin] 300 mg PO TID #90 capsule 09/07/15 04/05/17 Unknown Rx Nitrofurantoin [place]/M-Cryst 100 mg PO Q12HR #20 capsule 04/06/16 04/05/17 Unknown Rx [Macrobid CAP] HYDROcodone/APAP 5-325 [[place] 1 each PO Q6HR PRN #15 tablet 04/07/16 04/05/17 Unknown Rx 5/325] Levofloxacin [Levaquin] 750 mg PO QDAY #7 tablet 04/07/16 04/05/17 Unknown Rx Famotidine [Pepcid] 10 mg PO BID #30 tablet 03/21/17 04/05/17 Unknown Rx Metoclopramide [Reglan] 10 mg PO TID #30 tab 03/21/17 04/05/17 Unknown Rx Ondansetron [Zofran Odt] 4 mg PO Q8HR #30 tab.rapdis 03/21/17 04/05/17 Unknown Rx Promethazine [Phenergan TAB] 25 mg PO Q6HR PRN #30 tab 03/21/17 04/05/17 Rx Doxylamine Succinate/Vit B6 1 each PO QHS PRN #40 tablet.dr 04/03/17 04/05/17 Unknown Rx [Agustin Corbett 10-10 mg Tablet] Ivanna Root [Ivanna] 250 mg PO Q8H PRN #1 bottle 04/03/17 04/05/17 Unknown Rx Metoclopramide [Reglan] 10 mg PO Q6HR #60 tab 04/08/17 Unknown Rx Promethazine [Phenergan TAB] 25 mg PO Q6HR PRN #60 tab 04/08/17 Unknown Rx Active Meds: Active Medications Acetaminophen (Tylenol) 650 mg PO Q4H PRN PRN Reason: Pain MILD(1-3)/Fever >100.5/SPENCER Al Hydrox/Mg Hydrox/Simethicone (Alum-Mag Hydrox-Simeth [phone]/5ml) 30 ml PO Q6H PRN PRN Reason: Indigestion Diphenhydramine HCl (Benadryl) 25 mg PO Q6H PRN PRN Reason: Itching Docusate Sodium (Colace) 100 mg PO Q12H PRN PRN Reason: Constipation Guaifenesin (Robitussin Dm) 10 ml PO Q6H PRN PRN Reason: Cough Lactated Ringer's (Lactated Ringers) 1,000 mls @ 125 mls/hr IV DIRECT LITTLE Labetalol HCl (Normodyne) 200 mg PO BID LITTLE Magnesium Hydroxide (Milk Of Magnesia) 30 ml PO QHS PRN PRN Reason: Laxative Effect Multivitamins/Iron/Calcium ( Vitamin) 1 each PO QDAY LITTLE Ondansetron HCl (Zofran) 4 mg IV Q6H PRN PRN Reason: Nausea And Vomiting Pseudoephedrine HCl (Sudafed) 30 mg PO Q4H PRN PRN Reason: Nasal Congestion Senna/Docusate Sodium (Senokot S) 2 tab PO Q12H PRN PRN Reason: Laxative Effect Simethicone (Mylicon) 80 mg PO Q6H PRN PRN Reason: Gas pain Sodium Chloride (Deep Sea) 2 spray NS Q4H PRN PRN Reason: Congestion Witch Jennifer/Glycerin (Tucks Pad) 1 each TP PRN PRN PRN Reason: Hemorrhoids Zolpidem Tartrate (Ambien) 10 mg PO ONCE PRN PRN Reason: Sleep Review of Systems All systems: negative - Vital Signs Vital signs: Vital Signs Temp Pulse Resp BP 97.2 F L 71 20 156/94 08/13/17 16:23 08/13/17 16:23 08/13/17 16:23 08/13/17 16:23 Temp Pulse Resp BP Pulse Ox 97.2 F L 73 20 145/88 08/13/17 16:23 08/13/17 16:29 08/13/17 16:23 08/13/17 16:29 - Physical Exam Breasts: Positive: normal Cardiovascular: Regular rate, Normal S1, Normal S2 Lungs: Positive: Clear to auscultation, Normal air movement Abdomen: Positive: normal appearance, soft, normal bowel sounds. Negative: distention, tenderness, guarding Genitourinary (Female): Positive: normal external genitalia, normal perenium Vulva: both: normal Vagina: Positive: normal moisture Uterus: Positive: enlarged Adnexa: both: normal Anus/Rectum: Positive: normal perianal skin Extremities: Positive: normal Deep Tendon Reflex Grade: Normal +2 - Obstetrical FHR: auscultation normal Results All other labs normal. Assessment and Plan A/P HD#1 admitted for severe HTN HX of pree in past elevated BP will start labetolol 200 mg po bid consult with nephrology ( hx of L nephrectomy - steroids should be highly consider with at least gest htn assess for preeclampsia PIH labs continuous monitoring reconsult for AMFM regular diet tonight
[2017-08-13 18:06] LABS: Bacteria,Urine 1+ /HPF (Negative); Mucus,Urine FEW /HPF
[2017-08-13 18:07] LABS: Bilirubin,Urine NEG (Negative); Blood,Urine SM (Negative); Ketones,Urine NEG (Negative); Leukocyte Esterase,Urine NEG (Negative); Nitrite,Urine NEG (Negative); Urobilinogen,Urine < 2.0 mg/dL (<2.0)
[2017-08-13] MEDS: NORMODYNE PO SCH (18:46)
--- NOTE | 2017-08-13 18:47 | Event Note ---
Date: 08/13/17 I spoke to refractive surgeon door furring installer and he stated that with normal bun and creatinine after her L nephrectomy that she may receive BMZ 12mg x2 24 hrs apart. call worker person door furring installer will write a note in am confirming his recommnedations but approves of giving steroids tonight. I spoke with patient and she stated that her door furring installer that performed surgeery said she was "releasing" so that she could obtain steroids. BMZ was verbally ordered and await formal consult and [facility] consult. She has been started on Labetolol 200 mg bid for BP control. BP in house has been 140-150/90s. Patient reports last night at the fire dept she obtained BP reading of 170/104. will continue close monitor
[2017-08-13] MEDS: CELESTONE SOLUSPAN IM SCH (18:49)
[2017-08-13 18:57] LABS: Basophils % (Auto) 0.3 % (0.0-1.8); Eosinophils % (Auto) 0.4 % (0.0-4.3); Hemoglobin 9.9 gm/dl (10.1-14.3); Mean Corpuscular HGB Conc 33 % (30-34); Mean Corpuscular Hemoglobin 31 pg (28-32); Mean Corpuscular Volume 95 fl (79-97); Platelet Count 264 K/mm3 (140-440); Red Blood Count 3.16 M/mm3 (3.65-5.03); Red Cell Distribution Width 14.3 % (13.2-15.2); White Blood Count 11.1 K/mm3 (4.5-11.0)
--- NOTE | 2017-08-13 18:58 | Event Note ---
Date: 08/13/17
[2017-08-13 19:02] LABS: Alanine Aminotransferase 9 units/L (7-56); Lactate Dehydrogenase 210 units/L (91-180); Uric Acid 8.3 mg/dL (3.5-7.6)
[2017-08-13] MEDS: TYLENOL PO PRN (21:20)
[2017-08-13] MEDS ORDERED: NORMODYNE PO SCH (22:00)
[2017-08-13] MEDS: AMBIEN PO PRN (22:58)
[2017-08-14] MEDS: APRESOLINE IV PRN (01:10)
[2017-08-14] MEDS: LACTATED RINGERS 1,000 ML IV SCH ×3 (05:47→21:50)
--- NOTE | 2017-08-14 07:20 | Consultation ---
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 Family/Genetic History: diabetes, hypertension, cancer, other (asthma) - Obstetrical History : 3 Medications and Allergies Allergies Allergy/AdvReac Type Severity Reaction Status Date / Time NSAIDS (Non-Steroidal Allergy Unknown Verified 08/13/17 18:45 Anti-Inflamma Androgenic Anabolic Steroid AdvReac Unknown Verified 04/05/17 18:21 Home Medications Medication Instructions Recorded Confirmed Last Taken Type Gabapentin [Neurontin] 300 mg PO TID #90 capsule 09/07/15 04/05/17 Unknown Rx Nitrofurantoin [place]/M-Cryst 100 mg PO Q12HR #20 capsule 04/06/16 04/05/17 Unknown Rx [Macrobid CAP] HYDROcodone/APAP 5-325 [[place] 1 each PO Q6HR PRN #15 tablet 04/07/16 04/05/17 Unknown Rx 5/325] Levofloxacin [Levaquin] 750 mg PO QDAY #7 tablet 04/07/16 04/05/17 Unknown Rx Famotidine [Pepcid] 10 mg PO BID #30 tablet 03/21/17 04/05/17 Unknown Rx Metoclopramide [Reglan] 10 mg PO TID #30 tab 03/21/17 04/05/17 Unknown Rx Ondansetron [Zofran Odt] 4 mg PO Q8HR #30 tab.rapdis 03/21/17 04/05/17 Unknown Rx Promethazine [Phenergan TAB] 25 mg PO Q6HR PRN #30 tab 03/21/17 04/05/17 Rx Doxylamine Succinate/Vit B6 1 each PO QHS PRN #40 tablet. 04/03/17 04/05/17 Unknown Rx [Agustin Corbett 10-10 mg Tablet] Ivanna Root [Ivanna] 250 mg PO Q8H PRN #1 bottle 04/03/17 04/05/17 Unknown Rx Metoclopramide [Reglan] 10 mg PO Q6HR #60 tab 04/08/17 Unknown Rx Promethazine [Phenergan TAB] 25 mg PO Q6HR PRN #60 tab 04/08/17 Unknown Rx Active Meds: Active Medications Acetaminophen (Tylenol) 650 mg PO Q4H PRN PRN Reason: Pain MILD(1-3)/Fever >100.5/SPENCER Last Admin: 08/13/17 21:20 Dose: 650 mg Al Hydrox/Mg Hydrox/Simethicone (Alum-Mag Hydrox-Simeth [phone]/5ml) 30 ml PO Q6H PRN PRN Reason: Indigestion Betamethasone Acet/Betameth SodPhos ([place] Soluspan) 12 mg IM Q24H [facility] Stop: 08/14/17 19:01 Last Admin: 08/13/17 18:49 Dose: 12 mg Diphenhydramine HCl (Benadryl) 25 mg PO Q6H PRN PRN Reason: Itching Docusate Sodium (Colace) 100 mg PO Q12H PRN PRN Reason: Constipation Guaifenesin (Robitussin Dm) 10 ml PO Q6H PRN PRN Reason: Cough Hydralazine HCl (Apresoline) 5 mg IV Q30MIN PRN PRN Reason: Blood Pressure Last Admin: 08/14/17 01:10 Dose: 5 mg Lactated Ringer's (Lactated Ringers) 1,000 mls @ 125 mls/hr IV DIRECT [facility] Last Admin: 08/14/17 05:47 Dose: 125 mls/hr Labetalol HCl (Normodyne) 200 mg PO BID [facility] Last Admin: 08/13/17 18:46 Dose: 200 mg Magnesium Hydroxide (Milk Of Magnesia) 30 ml PO QHS PRN PRN Reason: Laxative Effect Multivitamins/Iron/Calcium ( Vitamin) 1 each PO QDAY [facility] Ondansetron HCl (Zofran) 4 mg IV Q6H PRN PRN Reason: Nausea And Vomiting Pseudoephedrine HCl (Sudafed) 30 mg PO Q4H PRN PRN Reason: Nasal Congestion Senna/Docusate Sodium (Senokot S) 2 tab PO Q12H PRN PRN Reason: Laxative Effect Simethicone (Mylicon) 80 mg PO Q6H PRN PRN Reason: Gas pain Sodium Chloride (Deep Sea) 2 spray NS Q4H PRN PRN Reason: Congestion Witch Jennifer/Glycerin (Tucks Pad) 1 each TP PRN PRN PRN Reason: Hemorrhoids Zolpidem Tartrate (Ambien) 10 mg PO ONCE PRN PRN Reason: Sleep Last Admin: 08/13/17 22:58 Dose: 10 mg - Vital Signs Vital signs: Vital Signs Temp Pulse Resp BP 97.2 F L 71 20 156/94 08/13/17 16:23 08/13/17 16:23 08/13/17 16:23 08/13/17 16:23 Temp Pulse Resp BP Pulse Ox 97.8 F 83 20 148/77 96 08/13/17 19:28 08/14/17 01:33 08/13/17 19:28 08/14/17 01:33 08/14/17 01:33 Results Result Diagrams: 08/13/17 18:17 08/13/17 18:17 Abnormal lab results 08/13/17 08/13/17 Range/Units 18:17 18:17 WBC 11.1 H (4.5-11.0) K/mm3 RBC 3.16 L (3.65-5.03) M/mm3 Hgb 9.9 L (10.1-14.3) gm/dl Hct 30.0 L (30.3-42.9) % [place] % (Auto) 7.8 H (0.0-7.3) % [place] # 0.9 H (0.0-0.8) K/mm3 Uric Acid 8.3 H (3.5-7.6) mg/dL Lactate Dehydrogenase 210 H (91-180) units/L All other labs normal. Assessment and Plan AMFM Pt seen Full consult to follow FW
--- NOTE | 2017-08-14 08:23 | Consultation ---
History of Present Illness - Reason for Consult Consult date: 08/14/17 proteinuria, other (Unilateral Kidney.) - History of Present Illness The patient is 31 yo AAF who is at 27 weeks was sent to [facility] from the high risk clinic for further management of elevated BP. She had preeclampsia during previous about 10 years. Patient reports having N, V, SPENCER and decreased appetite. She donated one of her kidney in 2010. Patient denies any urinary symptoms, kidney stone, NSAID intake or UTI. She will be receiving steroids for the treatment of preeclampsia. Past History Past Medical History: hypertension (gestational) Social history: single. denies: smoking, alcohol abuse, prescription drug abuse Medications and Allergies Allergies Allergy/AdvReac Type Severity Reaction Status Date / Time NSAIDS (Non-Steroidal Allergy Unknown Verified 08/13/17 18:45 Anti-Inflamma Androgenic Anabolic Steroid AdvReac Unknown Verified 04/05/17 18:21 Home Medications Medication Instructions Recorded Confirmed Last Taken Type Gabapentin [Neurontin] 300 mg PO TID #90 capsule 09/07/15 04/05/17 Unknown Rx Nitrofurantoin Ponce/M-Cryst 100 mg PO Q12HR #20 capsule 04/06/16 04/05/17 Unknown Rx [Macrobid CAP] HYDROcodone/APAP 5-325 [[place] 1 each PO Q6HR PRN #15 tablet 04/07/16 04/05/17 Unknown Rx 5/325] Levofloxacin [Levaquin] 750 mg PO QDAY #7 tablet 04/07/16 04/05/17 Unknown Rx Famotidine [Pepcid] 10 mg PO BID #30 tablet 03/21/17 04/05/17 Unknown Rx Metoclopramide [Reglan] 10 mg PO TID #30 tab 03/21/17 04/05/17 Unknown Rx Ondansetron [Zofran Odt] 4 mg PO Q8HR #30 tab.rapdis 03/21/17 04/05/17 Unknown Rx Promethazine [Phenergan TAB] 25 mg PO Q6HR PRN #30 tab 03/21/17 04/05/17 Rx Doxylamine Succinate/Vit B6 1 each PO QHS PRN #40 tablet. 04/03/17 04/05/17 Unknown Rx [Agustin Corbett 10-10 mg Tablet] Ivanna Root [Ivanna] 250 mg PO Q8H PRN #1 bottle 04/03/17 04/05/17 Unknown Rx Metoclopramide [Reglan] 10 mg PO Q6HR #60 tab 04/08/17 Unknown Rx Promethazine [Phenergan TAB] 25 mg PO Q6HR PRN #60 tab 04/08/17 Unknown Rx Active Meds: Active Medications Acetaminophen (Tylenol) 650 mg PO Q4H PRN PRN Reason: Pain MILD(1-3)/Fever >100.5/SPENCER Last Admin: 08/13/17 21:20 Dose: 650 mg Al Hydrox/Mg Hydrox/Simethicone (Alum-Mag Hydrox-Simeth [phone]/5ml) 30 ml PO Q6H PRN PRN Reason: Indigestion Betamethasone Acet/Betameth SodPhos (Celestone Soluspan) 12 mg IM Q24H [facility] Stop: 08/14/17 19:01 Last Admin: 08/13/17 18:49 Dose: 12 mg Diphenhydramine HCl (Benadryl) 25 mg PO Q6H PRN PRN Reason: Itching Docusate Sodium (Colace) 100 mg PO Q12H PRN PRN Reason: Constipation Ferrous Sulfate (Feosol) 325 mg PO BID [facility] Guaifenesin (Robitussin Dm) 10 ml PO Q6H PRN PRN Reason: Cough Hydralazine HCl (Apresoline) 5 mg IV Q30MIN PRN PRN Reason: Blood Pressure Last Admin: 08/14/17 01:10 Dose: 5 mg Lactated Ringer's (Lactated Ringers) 1,000 mls @ 125 mls/hr IV DIRECT [facility] Last Admin: 08/14/17 05:47 Dose: 125 mls/hr Labetalol HCl (Normodyne) 200 mg PO BID [facility] Last Admin: 08/13/17 18:46 Dose: 200 mg Magnesium Hydroxide (Milk Of Magnesia) 30 ml PO QHS PRN PRN Reason: Laxative Effect Multivitamins/Iron/Calcium ( Vitamin) 1 each PO QDAY [facility] Ondansetron HCl (Zofran) 4 mg IV Q6H PRN PRN Reason: Nausea And Vomiting Pseudoephedrine HCl (Sudafed) 30 mg PO Q4H PRN PRN Reason: Nasal Congestion Senna/Docusate Sodium (Senokot S) 2 tab PO Q12H PRN PRN Reason: Laxative Effect Simethicone (Mylicon) 80 mg PO Q6H PRN PRN Reason: Gas pain Sodium Chloride (Deep Sea) 2 spray NS Q4H PRN PRN Reason: Congestion Witch Jennifer/Glycerin (Tucks Pad) 1 each TP PRN PRN PRN Reason: Hemorrhoids Zolpidem Tartrate (Ambien) 10 mg PO ONCE PRN PRN Reason: Sleep Last Admin: 08/13/17 22:58 Dose: 10 mg Review of Systems Constitutional: weight gain, anorexia, no weight loss, no fever, no chills, no weakness Ears, nose, mouth and throat: no epistaxis Breasts: deferred Cardiovascular: high blood pressure, no chest pain, no orthopnea, no edema, no lightheadedness, no shortness of breath, no leg edema Respiratory: no cough, no shortness of breath Gastrointestinal: abdominal pain, nausea, vomiting, no diarrhea, no melena Genitourinary Female: no dysuria, no hematuria Rectal: no bleeding Musculoskeletal: no redness of joints, no arthritis Integumentary: no rash, no sores, no wounds, no jaundice Neurological: no paralysis, no seizures, no syncope, no convulsions, no aphasia , no double vision, no loss of vision Psychiatric: no disorientation Endocrine: weight change Hematologic/Lymphatic: no easy bleeding Exam - Vital Signs Vital signs: Vital Signs Temp Pulse Resp BP 97.2 F L 71 20 156/94 08/13/17 16:23 08/13/17 16:23 08/13/17 16:23 08/13/17 16:23 - General Appearance General appearance: well-developed, well-nourished, appears stated age, obese, other (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 Absent: tenderness Integumentary: no rash, warm and dry Neurologic: no focal deficit, no asterixis, alert and oriented x3, CN 3-12 intact Musculoskeletal: Present: other Psychiatric: mood/affect appropriate, cooperative Results - Lab Results 08/13/17 18:17 08/13/17 18:17 Assessment and Plan 1. Unilateral Kidney: S/p kidney donation in 2010. Creatinine level is normal. Patient is receiving IV fluids. No contraindication to give Corticosteroids from renal stand point. Follow renal function. 2. Pre-eclampsia: Management per OB. Monitor BP. 3. Proteinuria: Likely secondary to pre-eclampsia. 24 hr urine collection for protein quantification is in process. 4. Gestational HTN: Continue current meds.
--- NOTE | 2017-08-14 08:50 | Progress Note ---
Assessment and Plan - Patient Problems (1) induced hypertension, antepartum Current Visit: Yes Status: Acute Subjective - Subjective Date of service: 08/14/17 Principal diagnosis: hypertension Interval history: 31y/o @ 27 weeks presents with elevated blood pressures after being evaluated by MFM. Patient admitted for blood pressure monitoring and surveillance for preeclampsia. She has been experiencing intermittent headaches. Denies scotomata or RUQ pain. Currently collecting 24hr urine specimen. Has received 1st dose of steroids yesterday. Patient reports: movement normal, no new complaints Objective - Vital Signs Vital Signs: Vital Signs - 12hr 08/13/17 08/13/17 08/13/17 20:54 20:59 21:04 Pulse Rate 69 81 71 Blood Pressure Blood Pressure [Left] O2 Sat by Pulse 97 97 97 Oximetry 08/13/17 08/13/17 08/13/17 21:09 21:14 21:19 Pulse Rate 74 77 102 H Blood Pressure Blood Pressure [Left] O2 Sat by Pulse 97 97 97 Oximetry 08/13/17 08/13/17 08/13/17 21:24 21:29 21:34 Pulse Rate 73 70 68 Blood Pressure 145/75 Blood Pressure [Left] O2 Sat by Pulse 98 98 98 Oximetry 08/13/17 08/13/17 08/13/17 21:39 21:44 21:49 Pulse Rate 69 69 74 Blood Pressure Blood Pressure [Left] O2 Sat by Pulse 98 98 97 Oximetry 08/13/17 08/13/17 08/13/17 21:54 21:59 22:04 Pulse Rate 73 82 77 Blood Pressure Blood Pressure [Left] O2 Sat by Pulse 95 96 95 Oximetry 08/13/17 08/13/17 08/13/17 22:09 22:14 22:19 Pulse Rate 81 74 75 Blood Pressure Blood Pressure [Left] O2 Sat by Pulse 96 96 95 Oximetry 08/13/17 08/13/17 08/13/17 22:22 22:24 22:28 Pulse Rate 67 86 91 H Blood Pressure Blood Pressure [Left] O2 Sat by Pulse 93 98 94 Oximetry 08/13/17 08/13/17 08/13/17 22:29 22:34 22:39 Pulse Rate 71 84 68 Blood Pressure Blood Pressure [Left] O2 Sat by Pulse 96 98 96 Oximetry 08/13/17 08/13/1717 22:44 22:49 22:54 Pulse Rate 75 81 71 Blood Pressure Blood Pressure [Left] O2 Sat by Pulse 94 96 96 Oximetry 08/13/17 08/13/17 08/13/17 22:59 23:01 23:04 Pulse Rate 72 78 114 H Blood Pressure 148/78 Blood Pressure [Left] O2 Sat by Pulse 96 99 Oximetry 08/13/17 08/13/17 08/13/17 23:09 23:14 23:19 Pulse Rate 79 97 H 87 Blood Pressure Blood Pressure [Left] O2 Sat by Pulse 95 95 96 Oximetry 08/13/17 08/13/17 08/13/17 23:23 23:24 23:29 Pulse Rate 73 73 79 Blood Pressure Blood Pressure [Left] O2 Sat by Pulse 94 95 95 Oximetry 08/13/17 08/13/17 08/13/17 23:30 23:34 23:39 Pulse Rate 74 85 74 Blood Pressure 177/94 Blood Pressure [Left] O2 Sat by Pulse 94 95 95 Oximetry 08/13/17 08/13/17 08/13/17 23:44 23:45 23:49 Pulse Rate 75 87 78 Blood Pressure Blood Pressure [Left] O2 Sat by Pulse 95 94 95 Oximetry 08/13/17 08/13/17 08/13/17 23:50 23:54 23:59 Pulse Rate 88 69 69 Blood Pressure Blood Pressure [Left] O2 Sat by Pulse 94 95 96 Oximetry 08/14/17 08/14/17 08/14/17 00:04 00:09 00:14 Pulse Rate 99 H 82 71 Blood Pressure Blood Pressure [Left] O2 Sat by Pulse 94 94 94 Oximetry 08/14/17 08/14/17 08/14/17 00:17 00:19 00:23 Pulse Rate 75 73 76 Blood Pressure Blood Pressure [Left] O2 Sat by Pulse 94 95 94 Oximetry 08/14/17 08/14/17 00:24 01:33 Pulse Rate 76 83 Blood Pressure Blood Pressure 148/77 [Left] O2 Sat by Pulse 92 96 Oximetry - Labs Labs: Abnormal Labs 08/13/17 08/13/17 18:17 18:17 WBC 11.1 H RBC 3.16 L Hgb 9.9 L Hct 30.0 L [place] % (Auto) 7.8 H [place] # 0.9 H Uric Acid 8.3 H Lactate Dehydrogenase 210 H Laboratory Results - last 24 hr 08/13/17 08/13/17 08/13/17 17:40 18:12 18:17 WBC 11.1 H RBC 3.16 L Hgb 9.9 L Hct 30.0 L MCV 95 MCH 31 MCHC 33 RDW 14.3 Plt Count 264 Lymph % (Auto) 24.6 [place] % (Auto) 7.8 H Eos % (Auto) 0.4 Baso % (Auto) 0.3 Lymph # 2.7 [place] # 0.9 H Eos # 0.0 Baso # 0.0 Seg Neutrophils % 66.9 Seg Neutrophils # 7.4 Creatinine Estimated GFR Uric Acid AST ALT Lactate Dehydrogenase Urine Color Yellow Urine Turbidity Clear Urine pH 6.0 Ur Specific [place] 1.013 Urine Protein 100 mg/dl Urine Glucose (UA) Neg Urine Ketones Neg Urine Blood Sm Urine Nitrite Neg Ur Reducing Substances Not Reportable Urine Bilirubin Neg Urine Ictotest Not Reportable Urine Urobilinogen < 2.0 Ur Leukocyte Esterase Neg Urine WBC (Auto) 1.0 Urine RBC (Auto) 2.0 U Epithel Cells (Auto) 5.0 Urine Bacteria (Auto) 1+ Urine Mucus Few Blood Type O NEGATIVE Antibody Screen Negative 08/13/17 18:17 WBC RBC Hgb Hct MCV MCH MCHC RDW Plt Count Lymph % (Auto) [place] % (Auto) Eos % (Auto) Baso % (Auto) Lymph # [place] # Eos # Baso # Seg Neutrophils % Seg Neutrophils # Creatinine 0.8 Estimated GFR > 60 Uric Acid 8.3 H AST 15 ALT 9 Lactate Dehydrogenase 210 H Urine Color Urine Turbidity Urine pH Ur Specific [place] Urine Protein Urine Glucose (UA) Urine Ketones Urine Blood Urine Nitrite Ur Reducing Substances Urine Bilirubin Urine Ictotest Urine Urobilinogen Ur Leukocyte Esterase Urine WBC (Auto) Urine RBC (Auto) U Epithel Cells (Auto) Urine Bacteria (Auto) Urine Mucus Blood Type Antibody Screen
[2017-08-14] MEDS: NORMODYNE PO SCH ×3 (09:29→21:54)
[2017-08-14] MEDS: PRENATAL VITAMIN PO SCH (09:31)
[2017-08-14 09:51] LABS: Urine Drugs of Abuse Note Disclamer
[2017-08-14] MEDS: ZOFRAN IV PRN (10:24)
[2017-08-14] MEDS: FEOSOL PO SCH ×2 (10:34→21:50)
[2017-08-14] MEDS: TYLENOL PO PRN (17:13)
[2017-08-14] MEDS: CELESTONE SOLUSPAN IM SCH (18:07)
[2017-08-14] MEDS: AMBIEN PO PRN (21:50)
[2017-08-15] MEDS: APRESOLINE IV PRN ×3 (04:01→17:50)
[2017-08-15] MEDS: ALUM-MAG HYDROX-SIMETH 200-200-20MG/5ML PO PRN ×2 (04:03→18:44)
[2017-08-15 05:44] LABS: Alanine Aminotransferase 23 units/L (7-56); Alkaline Phosphatase 114 units/L (35-129); Anion Gap 19 mmol/L; BUN/Creatinine Ratio 15; Blood Urea Nitrogen 12 mg/dL (7-17); Calcium 8.8 mg/dL (8.4-10.2); Carbon Dioxide 20 mmol/L (22-30); Glucose 143 mg/dL (65-100); Potassium 4.5 mmol/L (3.6-5.0); Sodium 139 mmol/L (137-145); Total Protein 6.1 g/dL (6.3-8.2)
--- NOTE | 2017-08-15 05:56 | Progress Note ---
Assessment and Plan Assessment 1. 27+6 weeks 2. Pre-eclampsia, severe 3. Hx IUFD/abruption 4. Hx nephrectomy 5. Rh negative Recommendations 1. Check EKG and CXR, labs, d/c IV fluids 2. IV BP meds as needed to keep BP <160/110 3. If IV meds needed often, would increase PO labetalol 4. Labs 2-3x/week, PRN 5. BPP twice weekly 6. Need rhogam at 28 weeks 7. Steroids completed Subjective - Subjective Date of service: 08/15/17 Principal diagnosis: hypertension Interval history: Patient reports chest tightness, for the past couple of hours, denies any SOB. + FM Patient reports: movement normal, no new complaints Objective - Vital Signs Vital Signs: Vital Signs - 12hr 08/14/17 08/14/17 08/14/17 17:55 18:00 18:04 Temperature Pulse Rate 97 H 84 96 H Respiratory Rate Blood Pressure 120/67 O2 Sat by Pulse 99 98 Oximetry 08/14/17 08/14/17 08/14/17 18:05 18:10 18:15 Temperature Pulse Rate 93 H 97 H 109 H Respiratory Rate Blood Pressure O2 Sat by Pulse 97 98 97 Oximetry 08/14/17 08/14/17 08/14/17 18:20 18:25 18:30 Temperature Pulse Rate 95 H 97 H 86 Respiratory Rate Blood Pressure O2 Sat by Pulse 97 97 98 Oximetry 08/14/17 08/14/17 08/14/17 18:35 18:40 18:45 Temperature Pulse Rate 101 H 99 H 99 H Respiratory Rate Blood Pressure O2 Sat by Pulse 97 97 99 Oximetry 08/14/17 08/14/17 08/14/17 18:50 18:55 19:00 Temperature Pulse Rate 110 H 103 H 102 H Respiratory Rate Blood Pressure O2 Sat by Pulse 99 96 97 Oximetry 08/14/17 08/14/17 08/14/17 19:04 19:05 19:10 Temperature Pulse Rate 96 H 103 H 95 H Respiratory Rate Blood Pressure 142/82 O2 Sat by Pulse 97 98 Oximetry 08/14/17 08/14/17 08/14/17 19:15 19:20 19:25 Temperature 98.6 F Pulse Rate 100 H 107 H 102 H Respiratory 20 Rate Blood Pressure O2 Sat by Pulse 98 98 98 Oximetry 1108/14/17 08/14/17 19:30 19:35 19:40 Temperature Pulse Rate 91 H 95 H 94 H Respiratory Rate Blood Pressure O2 Sat by Pulse 100 97 97 Oximetry 08/14/17 08/14/17 08/14/17 19:45 19:50 19:55 Temperature Pulse Rate 94 H 99 H 101 H Respiratory Rate Blood Pressure O2 Sat by Pulse 97 96 96 Oximetry 08/14/17 08/14/17 08/14/17 20:00 20:04 20:05 Temperature Pulse Rate 99 H 100 H 113 H Respiratory Rate Blood Pressure 136/74 O2 Sat by Pulse 98 96 Oximetry 08/14/17 08/14/17 08/14/17 20:23 20:28 20:33 Temperature Pulse Rate 94 H 86 89 Respiratory Rate Blood Pressure O2 Sat by Pulse 98 97 97 Oximetry 08/14/17 08/14/17 08/14/17 20:38 20:43 20:48 Temperature Pulse Rate 90 95 H 90 Respiratory Rate Blood Pressure O2 Sat by Pulse 96 97 95 Oximetry 08/14/17 08/14/17 08/14/17 20:52 20:53 20:58 Temperature Pulse Rate 104 H 92 H 90 Respiratory Rate Blood Pressure O2 Sat by Pulse 94 96 93 Oximetry 08/14/17 08/14/17 08/14/17 21:03 21:04 21:08 Temperature Pulse Rate 85 96 H 90 Respiratory Rate Blood Pressure 171/85 145/77 O2 Sat by Pulse 94 97 Oximetry 08/14/17 08/14/17 08/14/17 21:13 21:18 21:23 Temperature Pulse Rate 80 84 88 Respiratory Rate Blood Pressure O2 Sat by Pulse 97 96 95 Oximetry 08/14/17 08/14/17 08/14/17 21:28 21:33 21:35 Temperature Pulse Rate 85 79 84 Respiratory Rate Blood Pressure O2 Sat by Pulse 95 95 94 Oximetry 08/14/17 08/14/17 08/14/17 21:38 21:41 21:43 Temperature Pulse Rate 85 89 107 H Respiratory Rate Blood Pressure O2 Sat by Pulse 94 94 97 Oximetry 08/14/17 08/14/17 08/14/17 21:48 21:53 21:54 Temperature Pulse Rate 83 77 88 Respiratory Rate Blood Pressure 150/76 O2 Sat by Pulse 95 96 Oximetry 08/14/17 08/14/1717 21:58 22:03 22:08 Temperature Pulse Rate 86 82 79 Respiratory Rate Blood Pressure O2 Sat by Pulse 97 98 97 Oximetry 08/14/17 08/14/17 08/14/17 22:13 22:18 22:23 Temperature Pulse Rate 86 80 86 Respiratory Rate Blood Pressure O2 Sat by Pulse 98 97 98 Oximetry 08/14/17 08/14/17 08/14/17 22:28 22:33 22:38 Temperature Pulse Rate 87 109 H 120 H Respiratory Rate Blood Pressure O2 Sat by Pulse 97 98 98 Oximetry 08/14/17 08/14/17 08/14/17 22:43 22:48 22:53 Temperature Pulse Rate 115 H 116 H 107 H Respiratory Rate Blood Pressure O2 Sat by Pulse 98 98 99 Oximetry 08/14/17 08/14/17 08/14/17 22:54 22:58 23:03 Temperature Pulse Rate 111 H 102 H 120 H Respiratory Rate Blood Pressure 132/86 O2 Sat by Pulse 100 99 Oximetry 08/14/17 08/14/17 08/14/17 23:08 23:12 23:13 Temperature 98.7 F Pulse Rate 109 H 103 H Respiratory 18 Rate Blood Pressure O2 Sat by Pulse 100 99 Oximetry 08/14/17 08/14/17 08/14/17 23:19 23:24 23:26 Temperature Pulse Rate 111 H 102 H 111 H Respiratory Rate Blood Pressure O2 Sat by Pulse 95 97 85 Oximetry 08/14/17 08/14/17 08/14/17 23:29 23:34 23:39 Temperature Pulse Rate 99 H 94 H 111 H Respiratory Rate Blood Pressure O2 Sat by Pulse 98 96 100 Oximetry 08/14/17 08/14/17 08/14/17 23:44 23:49 23:54 Temperature Pulse Rate 98 H 113 H 97 H Respiratory Rate Blood Pressure 156/83 O2 Sat by Pulse 100 100 99 Oximetry 08/14/17 08/15/17 08/15/17 23:59 00:04 00:09 Temperature Pulse Rate 97 H 102 H 94 H Respiratory Rate Blood Pressure O2 Sat by Pulse 99 99 99 Oximetry 08/15/17 08/15/17 08/15/17 00:14 00:19 00:24 Temperature Pulse Rate 98 H 103 H 103 H Respiratory Rate Blood Pressure O2 Sat by Pulse 99 99 99 Oximetry 08/15/17 08/15/17 08/15/17 00:29 00:30 00:34 Temperature Pulse Rate 99 H 113 H 95 H Respiratory Rate Blood Pressure O2 Sat by Pulse 99 90 93 Oximetry 08/15/17 08/15/17 08/15/17 00:39 00:54 01:45 Temperature Pulse Rate 95 H 101 H 90 Respiratory Rate Blood Pressure 149/83 167/84 O2 Sat by Pulse 92 97 Oximetry 08/15/17 08/15/17 08/15/17 01:50 01:54 01:55 Temperature Pulse Rate 96 H 93 H 92 H Respiratory Rate Blood Pressure 153/78 O2 Sat by Pulse 96 95 Oximetry 08/15/17 08/15/17 08/15/17 01:56 02:00 02:02 Temperature Pulse Rate 95 H 93 H 93 H Respiratory Rate Blood Pressure O2 Sat by Pulse 94 95 94 Oximetry 08/15/17 08/15/17 08/15/17 02:05 02:10 02:12 Temperature Pulse Rate 98 H 93 H 91 H Respiratory Rate Blood Pressure O2 Sat by Pulse 94 94 94 Oximetry 08/15/17 08/15/17 08/15/17 02:15 02:18 02:20 Temperature Pulse Rate 92 H 95 H 94 H Respiratory Rate Blood Pressure O2 Sat by Pulse 95 94 94 Oximetry 08/15/17 08/15/17 08/15/17 02:23 02:25 02:29 Temperature 98.4 F Pulse Rate 94 H 95 H 91 H Respiratory 20 Rate Blood Pressure O2 Sat by Pulse 94 94 94 Oximetry 08/15/17 08/15/17 08/15/17 02:30 02:34 02:35 Temperature Pulse Rate 115 H 94 H 87 Respiratory Rate Blood Pressure O2 Sat by Pulse 95 94 96 Oximetry 08/15/17 08/15/17 08/15/17 02:40 02:45 02:50 Temperature Pulse Rate 96 H 97 H 91 H Respiratory Rate Blood Pressure O2 Sat by Pulse 94 94 94 Oximetry 08/15/17 08/15/17 08/15/17 02:54 02:55 02:56 Temperature Pulse Rate 86 102 H 84 Respiratory Rate Blood Pressure 153/75 O2 Sat by Pulse 96 94 Oximetry 08/15/17 08/15/17 08/15/17 03:00 03:01 03:05 Temperature Pulse Rate 91 H 85 96 H Respiratory Rate Blood Pressure O2 Sat by Pulse 94 94 95 Oximetry 08/15/17 08/15/17 08/15/17 03:07 03:10 03:12 Temperature Pulse Rate 93 H 92 H 86 Respiratory Rate Blood Pressure O2 Sat by Pulse 94 95 91 Oximetry 08/15/17 08/15/17 08/15/17 03:15 03:17 03:20 Temperature Pulse Rate 85 88 86 Respiratory Rate Blood Pressure O2 Sat by Pulse 96 94 95 Oximetry 08/15/17 08/15/17 08/15/17 03:25 03:27 03:30 Temperature Pulse Rate 89 88 93 H Respiratory Rate Blood Pressure O2 Sat by Pulse 94 94 94 Oximetry 08/15/17 08/15/17 08/15/17 03:33 03:54 03:59 Temperature Pulse Rate 86 90 Respiratory Rate Blood Pressure 162/81 O2 Sat by Pulse 94 98 Oximetry 08/15/17 08/15/17 08/15/17 04:00 04:01 04:03 Temperature Pulse Rate 71 96 H 90 Respiratory Rate Blood Pressure 173/79 178/84 178/84 O2 Sat by Pulse Oximetry 08/15/17 08/15/17 08/15/17 04:04 04:09 04:14 Temperature Pulse Rate 102 H 102 H 72 Respiratory Rate Blood Pressure O2 Sat by Pulse 97 98 98 Oximetry 08/15/17 08/15/17 08/15/17 04:19 04:22 04:24 Temperature Pulse Rate 84 85 101 H Respiratory Rate Blood Pressure 137/66 O2 Sat by Pulse 96 97 Oximetry 08/15/17 08/15/17 08/15/17 04:29 04:34 04:39 Temperature Pulse Rate 87 81 78 Respiratory Rate Blood Pressure O2 Sat by Pulse 95 97 95 Oximetry 08/15/17 08/15/17 08/15/17 04:44 04:49 04:53 Temperature Pulse Rate 125 H 85 87 Respiratory Rate Blood Pressure 148/68 O2 Sat by Pulse 96 97 Oximetry 08/15/17 08/15/17 08/15/17 04:54 04:59 05:04 Temperature Pulse Rate 81 85 76 Respiratory Rate Blood Pressure O2 Sat by Pulse 96 97 96 Oximetry 08/15/17 08/15/17 08/15/17 05:09 05:11 05:14 Temperature Pulse Rate 92 H 93 H 87 Respiratory Rate Blood Pressure O2 Sat by Pulse 95 94 95 Oximetry 08/15/17 08/15/17 08/15/17 05:19 05:24 05:29 Temperature Pulse Rate 81 78 91 H Respiratory Rate Blood Pressure 146/71 O2 Sat by Pulse 96 96 95 Oximetry 08/15/17 08/15/17 08/15/17 05:36 05:37 05:42 Temperature Pulse Rate 86 111 H 82 Respiratory Rate Blood Pressure 148/74 O2 Sat by Pulse 98 97 Oximetry 08/15/17 08/15/17 08/15/17 05:47 05:52 05:53 Temperature Pulse Rate 85 88 91 H Respiratory Rate Blood Pressure 183/83 O2 Sat by Pulse 96 97 Oximetry - Exam Cardiovascular: Regular rate Lungs: Clear to auscultation Abdomen: Present: soft. Absent: tenderness Extremities: tenderness, edema - Labs Labs: Abnormal Labs 08/13/17 08/13/17 08/13/17 16:30 18:17 18:17 WBC 11.1 H RBC 3.16 L Hgb 9.9 L Hct 30.0 L [place] % (Auto) 7.8 H [place] # 0.9 H Carbon Dioxide Glucose Uric Acid 8.3 H Lactate Dehydrogenase 210 H Total Protein Albumin Ur Total Protein 24 Hr 3850.00 H Urine Total Protein 350 H 08/15/17 05:01 WBC RBC Hgb Hct [place] % (Auto) [place] # Carbon Dioxide 20 L Glucose 143 H Uric Acid Lactate Dehydrogenase Total Protein 6.1 L Albumin 3.0 L Ur Total Protein 24 Hr Urine Total Protein Laboratory Results - last 24 hr 08/13/17 08/14/17 08/15/17 16:30 09:03 05:01 Sodium 139 Potassium 4.5 Chloride 105.0 Carbon Dioxide 20 L Anion Gap 19 BUN 12 Creatinine 0.8 Estimated GFR > 60 BUN/Creatinine Ratio 15 Glucose 143 H Calcium 8.8 Phosphorus 3.50 Magnesium 1.70 Total Bilirubin 0.20 AST 35 ALT 23 Alkaline Phosphatase 114 Total Protein 6.1 L Albumin 3.0 L Albumin/Globulin Ratio 1.0 Urine Total Volume 1100 Ur Total Protein 24 Hr 3850.00 H Urine Total Protein 350 H Urine Opiates Screen Presumptive negative Urine Methadone Screen Presumptive negative Ur Barbiturates Screen Presumptive negative Ur Phencyclidine Scrn Presumptive negative Ur Amphetamines Screen Presumptive negative U Benzodiazepines Scrn Presumptive negative Urine Cocaine Screen Presumptive negative U Marijuana (THC) Screen Presumptive negative Drugs of Abuse Note Disclamer
--- NOTE | 2017-08-15 06:42 | XRay Report ---
FINAL REPORT EXAM: XR CHEST 1V AP HISTORY: chest tightness TECHNIQUE: An AP upright portable view of the chest was obtained. FINDINGS: The heart size is at the upper limits of normal. The lungs are clear. There is no evidence of congestion. Pleural fluid is not seen. The bones soft tissues are well maintained. IMPRESSION: No active chest disease.
--- NOTE | 2017-08-15 07:58 | Progress Note ---
Assessment and Plan 1. Unilateral Kidney: S/p kidney donation in 2010. Creatinine level is normal. Follow renal function. 2. Pre-eclampsia: Management per OB. Monitor BP. 3. Proteinuria: Likely secondary to pre-eclampsia. 4. Gestational HTN: Continue current meds. Subjective Date of service: 08/15/17 Principal diagnosis: hypertension Interval history: Patient had CP earlier this AM. Feeling better now. Objective - Vital Signs Vital signs: Vital Signs - 12hr 08/14/17 08/14/17 08/14/17 20:04 20:05 20:23 Temperature Pulse Rate 100 H 113 H 94 H Respiratory Rate Blood Pressure 136/74 O2 Sat by Pulse 96 98 Oximetry 08/14/17 08/14/17 08/14/17 20:28 20:33 20:38 Temperature Pulse Rate 86 89 90 Respiratory Rate Blood Pressure O2 Sat by Pulse 97 97 96 Oximetry 08/14/17 08/14/17 08/14/17 20:43 20:48 20:52 Temperature Pulse Rate 95 H 90 104 H Respiratory Rate Blood Pressure O2 Sat by Pulse 97 95 94 Oximetry 08/14/17 08/14/17 08/14/17 20:53 20:58 21:03 Temperature Pulse Rate 92 H 90 85 Respiratory Rate Blood Pressure O2 Sat by Pulse 96 93 94 Oximetry 08/14/17 08/14/17 08/14/17 21:04 21:08 21:13 Temperature Pulse Rate 96 H 90 80 Respiratory Rate Blood Pressure 171/85 145/77 O2 Sat by Pulse 97 97 Oximetry 08/14/17 08/14/17 08/14/17 21:18 21:23 21:28 Temperature Pulse Rate 84 88 85 Respiratory Rate Blood Pressure O2 Sat by Pulse 96 95 95 Oximetry 08/14/17 08/14/17 08/14/17 21:33 21:35 21:38 Temperature Pulse Rate 79 84 85 Respiratory Rate Blood Pressure O2 Sat by Pulse 95 94 94 Oximetry 08/14/17 08/14/17 08/14/17 21:41 21:43 21:48 Temperature Pulse Rate 89 107 H 83 Respiratory Rate Blood Pressure O2 Sat by Pulse 94 97 95 Oximetry 08/14/17 08/14/17 08/14/17 21:53 21:54 21:58 Temperature Pulse Rate 77 88 86 Respiratory Rate Blood Pressure 150/76 O2 Sat by Pulse 96 97 Oximetry 08/14/17 08/14/17 08/14/17 22:03 22:08 22:13 Temperature Pulse Rate 82 79 86 Respiratory Rate Blood Pressure O2 Sat by Pulse 98 97 98 Oximetry 08/14/17 08/14/17 08/14/17 22:18 22:23 22:28 Temperature Pulse Rate 80 86 87 Respiratory Rate Blood Pressure O2 Sat by Pulse 97 98 97 Oximetry 08/14/17 08/14/17 08/14/17 22:33 22:38 22:43 Temperature Pulse Rate 109 H 120 H 115 H Respiratory Rate Blood Pressure O2 Sat by Pulse 98 98 98 Oximetry 08/14/17 08/14/17 08/14/17 22:48 22:53 22:54 Temperature Pulse Rate 116 H 107 H 111 H Respiratory Rate Blood Pressure 132/86 O2 Sat by Pulse 98 99 Oximetry 08/14/17 08/14/17 08/14/17 22:58 23:03 23:08 Temperature Pulse Rate 102 H 120 H 109 H Respiratory Rate Blood Pressure O2 Sat by Pulse 100 99 100 Oximetry 08/14/17 08/14/17 08/14/17 23:12 23:13 23:19 Temperature 98.7 F Pulse Rate 103 H 111 H Respiratory 18 Rate Blood Pressure O2 Sat by Pulse 99 95 Oximetry 08/14/17 08/14/17 08/14/17 23:24 23:26 23:29 Temperature Pulse Rate 102 H 111 H 99 H Respiratory Rate Blood Pressure O2 Sat by Pulse 97 85 98 Oximetry 08/14/17 08/14/17 08/14/17 23:34 23:39 23:44 Temperature Pulse Rate 94 H 111 H 98 H Respiratory Rate Blood Pressure O2 Sat by Pulse 96 100 100 Oximetry 08/14/17 08/14/17 08/14/17 23:49 23:54 23:59 Temperature Pulse Rate 113 H 97 H 97 H Respiratory Rate Blood Pressure 156/83 O2 Sat by Pulse 100 99 99 Oximetry 08/15/17 08/15/17 08/15/17 00:04 00:09 00:14 Temperature Pulse Rate 102 H 94 H 98 H Respiratory Rate Blood Pressure O2 Sat by Pulse 99 99 99 Oximetry 08/15/17 08/15/17 08/15/17 00:19 00:24 00:29 Temperature Pulse Rate 103 H 103 H 99 H Respiratory Rate Blood Pressure O2 Sat by Pulse 99 99 99 Oximetry 08/15/17 08/15/17 08/15/17 00:30 00:34 00:39 Temperature Pulse Rate 113 H 95 H 95 H Respiratory Rate Blood Pressure O2 Sat by Pulse 90 93 92 Oximetry 08/15/17 08/15/17 08/15/17 00:54 01:45 01:50 Temperature Pulse Rate 101 H 90 96 H Respiratory Rate Blood Pressure 149/83 167/84 O2 Sat by Pulse 97 96 Oximetry 08/15/17 08/15/17 08/15/17 01:54 01:55 01:56 Temperature Pulse Rate 93 H 92 H 95 H Respiratory Rate Blood Pressure 153/78 O2 Sat by Pulse 95 94 Oximetry 08/15/17 08/15/17 08/15/17 02:00 02:02 02:05 Temperature Pulse Rate 93 H 93 H 98 H Respiratory Rate Blood Pressure O2 Sat by Pulse 95 94 94 Oximetry 08/15/17 08/15/17 08/15/17 02:10 02:12 02:15 Temperature Pulse Rate 93 H 91 H 92 H Respiratory Rate Blood Pressure O2 Sat by Pulse 94 94 95 Oximetry 08/15/17 08/15/17 08/15/17 02:18 02:20 02:23 Temperature Pulse Rate 95 H 94 H 94 H Respiratory Rate Blood Pressure O2 Sat by Pulse 94 94 94 Oximetry 08/15/17 08/15/17 08/15/17 02:25 02:29 02:30 Temperature 98.4 F Pulse Rate 95 H 91 H 115 H Respiratory 20 Rate Blood Pressure O2 Sat by Pulse 94 94 95 Oximetry 08/15/17 08/15/17 08/15/17 02:34 02:35 02:40 Temperature Pulse Rate 94 H 87 96 H Respiratory Rate Blood Pressure O2 Sat by Pulse 94 96 94 Oximetry 08/15/17 08/15/17 08/15/17 02:45 02:50 02:54 Temperature Pulse Rate 97 H 91 H 86 Respiratory Rate Blood Pressure 153/75 O2 Sat by Pulse 94 94 Oximetry 08/15/17 08/15/17 08/15/17 02:55 02:56 03:00 Temperature Pulse Rate 102 H 84 91 H Respiratory Rate Blood Pressure O2 Sat by Pulse 96 94 94 Oximetry 08/15/17 08/15/17 08/15/17 03:01 03:05 03:07 Temperature Pulse Rate 85 96 H 93 H Respiratory Rate Blood Pressure O2 Sat by Pulse 94 95 94 Oximetry 08/15/17 08/15/17 08/15/17 03:10 03:12 03:15 Temperature Pulse Rate 92 H 86 85 Respiratory Rate Blood Pressure O2 Sat by Pulse 95 91 96 Oximetry 08/15/17 08/15/17 08/15/17 03:17 03:20 03:25 Temperature Pulse Rate 88 86 89 Respiratory Rate Blood Pressure O2 Sat by Pulse 94 95 94 Oximetry 08/15/17 08/15/17 08/15/17 03:27 03:30 03:33 Temperature Pulse Rate 88 93 H 86 Respiratory Rate Blood Pressure O2 Sat by Pulse 94 94 94 Oximetry 08/15/17 08/15/17 08/15/17 03:54 03:59 04:00 Temperature Pulse Rate 90 71 Respiratory Rate Blood Pressure 162/81 173/79 O2 Sat by Pulse 98 Oximetry 08/15/17 08/15/17 08/15/17 04:01 04:03 04:04 Temperature Pulse Rate 96 H 90 102 H Respiratory Rate Blood Pressure 178/84 178/84 O2 Sat by Pulse 97 Oximetry 08/15/17 08/15/17 08/15/17 04:09 04:14 04:19 Temperature Pulse Rate 102 H 72 84 Respiratory Rate Blood Pressure O2 Sat by Pulse 98 98 96 Oximetry 08/15/17 08/15/17 08/15/17 04:22 04:24 04:29 Temperature Pulse Rate 85 101 H 87 Respiratory Rate Blood Pressure 137/66 O2 Sat by Pulse 97 95 Oximetry 08/15/17 08/15/17 08/15/17 04:34 04:39 04:44 Temperature Pulse Rate 81 78 125 H Respiratory Rate Blood Pressure O2 Sat by Pulse 97 95 96 Oximetry 08/15/17 08/15/17 08/15/17 04:49 04:53 04:54 Temperature Pulse Rate 85 87 81 Respiratory Rate Blood Pressure 148/68 O2 Sat by Pulse 97 96 Oximetry 08/15/17 08/15/17 08/15/17 04:59 05:04 05:09 Temperature Pulse Rate 85 76 92 H Respiratory Rate Blood Pressure O2 Sat by Pulse 97 96 95 Oximetry 08/15/17 08/15/17 08/15/17 05:11 05:14 05:19 Temperature Pulse Rate 93 H 87 81 Respiratory Rate Blood Pressure O2 Sat by Pulse 94 95 96 Oximetry 08/15/17 08/15/17 08/15/17 05:24 05:29 05:36 Temperature Pulse Rate 78 91 H 86 Respiratory Rate Blood Pressure 146/71 148/74 O2 Sat by Pulse 96 95 Oximetry 08/15/17 08/15/17 08/15/17 05:37 05:42 05:47 Temperature Pulse Rate 111 H 82 85 Respiratory Rate Blood Pressure O2 Sat by Pulse 98 97 96 Oximetry 08/15/17 08/15/17 08/15/17 05:52 05:53 05:57 Temperature Pulse Rate 88 91 H 91 H Respiratory Rate Blood Pressure 183/83 O2 Sat by Pulse 97 97 Oximetry 08/15/17 08/15/17 08/15/17 06:02 06:07 06:12 Temperature Pulse Rate 86 74 80 Respiratory Rate Blood Pressure 171/78 176/83 163/75 O2 Sat by Pulse 97 95 95 Oximetry 08/15/17 08/15/17 08/15/17 06:14 06:17 06:22 Temperature Pulse Rate 79 74 98 H Respiratory Rate Blood Pressure 163/75 O2 Sat by Pulse 97 98 Oximetry 08/15/17 08/15/17 08/15/17 06:27 06:32 06:35 Temperature Pulse Rate 94 H 33 L 75 Respiratory Rate Blood Pressure 149/75 O2 Sat by Pulse 98 100 Oximetry 08/15/17 08/15/17 08/15/17 06:37 06:41 06:42 Temperature Pulse Rate 93 H 102 H 90 Respiratory Rate Blood Pressure O2 Sat by Pulse 97 74 L 97 Oximetry 08/15/17 08/15/17 08/15/17 06:47 06:53 06:54 Temperature Pulse Rate 82 80 104 H Respiratory Rate Blood Pressure O2 Sat by Pulse 97 97 75 L Oximetry 08/15/17 08/15/17 08/15/17 06:55 06:58 07:02 Temperature Pulse Rate 96 H 92 H 80 Respiratory Rate Blood Pressure 165/90 165/82 O2 Sat by Pulse 97 Oximetry 08/15/17 08/15/17 08/15/17 07:03 07:08 07:13 Temperature Pulse Rate 74 71 98 H Respiratory Rate Blood Pressure O2 Sat by Pulse 97 97 96 Oximetry 08/15/17 08/15/17 08/15/17 07:15 07:18 07:23 Temperature Pulse Rate 116 H 92 H 73 Respiratory Rate Blood Pressure 168/89 O2 Sat by Pulse 97 98 Oximetry 08/15/17 08/15/17 08/15/17 07:28 07:33 07:35 Temperature Pulse Rate 89 77 85 Respiratory Rate Blood Pressure 166/78 O2 Sat by Pulse 99 100 Oximetry 08/15/17 08/15/17 08/15/17 07:38 07:43 07:48 Temperature Pulse Rate 76 74 83 Respiratory Rate Blood Pressure O2 Sat by Pulse 100 100 100 Oximetry 08/15/17 08/15/17 08/15/17 07:53 07:55 07:58 Temperature Pulse Rate 83 83 80 Respiratory Rate Blood Pressure 171/77 O2 Sat by Pulse 100 99 Oximetry - General Appearance General appearance: well-developed, well-nourished, appears stated age, obese, other (no distress) EENT: ATNC, PERRL, mucous membranes moist, hearing intact, vision intact Neck: supple Respiratory: Present: Clear to Ascultation Cardiology: regular, S1S2, no murmurs Gastrointestinal: normoactive bowel sounds, no tenderness, other (enlarged uterus noted) Integumentary: no rash, other Neurologic: no focal deficit, no asterixis, alert and oriented x3, CN 3-12 intact Musculoskeletal: other (no edema) Psychiatric: mood/affect appropriate, cooperative - Lab 08/17/17 04:39 08/15/17 05:01 Most recent lab results Calcium 8.8 mg/dL (8.4-10.2) 08/15/17 05:01 Phosphorus 3.50 mg/dL (2.5-4.5) 08/15/17 05:01 Magnesium 1.70 mg/dL (1.7-2.3) 08/15/17 05:01 Ur Total Protein 24 Hr 3850.00 (2-200) H 08/13/17 16:30 Urine Total Protein 350 mg/dL (5-11.8) H 08/13/17 16:30
--- NOTE | 2017-08-15 08:24 | Progress Note ---
Assessment and Plan A: IUP at 27w6d s/p 2 doses of betamethasone Chest tightness/pain, sinus arrythmia on EKG Preeclampsia Renal transplant donor- one kidney Previous x 1 Undesired Fertility P: No magnesium today per MFM unless she will deliver Cardiology consult Discontinue IV fluids Closely monitor maternal and status Subjective - Subjective Date of service: 08/15/17 Principal diagnosis: IUP at 27w6, preeclampsia, one kidney Interval history: Pt c/o chest tightness this morning. No obstetric complaints. + headache starting now, but has not taken any pain medication. Patient reports: new complaints (per HPI ), movement normal, no loss of fluid, no vaginal bleeding, no contractions Objective - Vital Signs Vital Signs: Vital Signs - 12hr 08/14/17 08/14/17 08/14/17 20:28 20:33 20:38 Temperature Pulse Rate 86 89 90 Respiratory Rate Blood Pressure O2 Sat by Pulse 97 97 96 Oximetry 08/14/17 08/14/17 08/14/17 20:43 20:48 20:52 Temperature Pulse Rate 95 H 90 104 H Respiratory Rate Blood Pressure O2 Sat by Pulse 97 95 94 Oximetry 08/14/17 08/14/17 08/14/17 20:53 20:58 21:03 Temperature Pulse Rate 92 H 90 85 Respiratory Rate Blood Pressure O2 Sat by Pulse 96 93 94 Oximetry 08/14/17 08/14/17 08/14/17 21:04 21:08 21:13 Temperature Pulse Rate 96 H 90 80 Respiratory Rate Blood Pressure 171/85 145/77 O2 Sat by Pulse 97 97 Oximetry 08/14/17 08/14/17 08/14/17 21:18 21:23 21:28 Temperature Pulse Rate 84 88 85 Respiratory Rate Blood Pressure O2 Sat by Pulse 96 95 95 Oximetry 08/14/17 08/14/17 08/14/17 21:33 21:35 21:38 Temperature Pulse Rate 79 84 85 Respiratory Rate Blood Pressure O2 Sat by Pulse 95 94 94 Oximetry 08/14/17 08/14/17 08/14/17 21:41 21:43 21:48 Temperature Pulse Rate 89 107 H 83 Respiratory Rate Blood Pressure O2 Sat by Pulse 94 97 95 Oximetry 08/14/17 08/14/17 08/14/17 21:53 21:54 21:58 Temperature Pulse Rate 77 88 86 Respiratory Rate Blood Pressure 150/76 O2 Sat by Pulse 96 97 Oximetry 08/14/17 08/14/17 08/14/17 22:03 22:08 22:13 Temperature Pulse Rate 82 79 86 Respiratory Rate Blood Pressure O2 Sat by Pulse 98 97 98 Oximetry 08/14/17 08/14/17 08/14/17 22:18 22:23 22:28 Temperature Pulse Rate 80 86 87 Respiratory Rate Blood Pressure O2 Sat by Pulse 97 98 97 Oximetry 08/14/17 08/14/17 08/14/17 22:33 22:38 22:43 Temperature Pulse Rate 109 H 120 H 115 H Respiratory Rate Blood Pressure O2 Sat by Pulse 98 98 98 Oximetry 08/14/17 08/14/17 08/14/17 22:48 22:53 22:54 Temperature Pulse Rate 116 H 107 H 111 H Respiratory Rate Blood Pressure 132/86 O2 Sat by Pulse 98 99 Oximetry 08/14/17 08/14/17 08/14/17 22:58 23:03 23:08 Temperature Pulse Rate 102 H 120 H 109 H Respiratory Rate Blood Pressure O2 Sat by Pulse 100 99 100 Oximetry 08/14/17 08/14/17 08/14/17 23:12 23:13 23:19 Temperature 98.7 F Pulse Rate 103 H 111 H Respiratory 18 Rate Blood Pressure O2 Sat by Pulse 99 95 Oximetry 08/14/17 08/14/17 08/14/17 23:24 23:26 23:29 Temperature Pulse Rate 102 H 111 H 99 H Respiratory Rate Blood Pressure O2 Sat by Pulse 97 85 98 Oximetry 08/14/17 08/14/17 08/14/17 23:34 23:39 23:44 Temperature Pulse Rate 94 H 111 H 98 H Respiratory Rate Blood Pressure O2 Sat by Pulse 96 100 100 Oximetry 08/14/17 08/14/17 08/14/17 23:49 23:54 23:59 Temperature Pulse Rate 113 H 97 H 97 H Respiratory Rate Blood Pressure 156/83 O2 Sat by Pulse 100 99 99 Oximetry 08/15/17 08/15/17 08/15/17 00:04 00:09 00:14 Temperature Pulse Rate 102 H 94 H 98 H Respiratory Rate Blood Pressure O2 Sat by Pulse 99 99 99 Oximetry 08/15/17 08/15/17 08/15/17 00:19 00:24 00:29 Temperature Pulse Rate 103 H 103 H 99 H Respiratory Rate Blood Pressure O2 Sat by Pulse 99 99 99 Oximetry 08/15/17 08/15/17 08/15/17 00:30 00:34 00:39 Temperature Pulse Rate 113 H 95 H 95 H Respiratory Rate Blood Pressure O2 Sat by Pulse 90 93 92 Oximetry 08/15/17 08/15/17 08/15/17 00:54 01:45 01:50 Temperature Pulse Rate 101 H 90 96 H Respiratory Rate Blood Pressure 149/83 167/84 O2 Sat by Pulse 97 96 Oximetry 08/15/17 08/15/17 08/15/17 01:54 01:55 01:56 Temperature Pulse Rate 93 H 92 H 95 H Respiratory Rate Blood Pressure 153/78 O2 Sat by Pulse 95 94 Oximetry 08/15/17 08/15/17 08/15/17 02:00 02:02 02:05 Temperature Pulse Rate 93 H 93 H 98 H Respiratory Rate Blood Pressure O2 Sat by Pulse 95 94 94 Oximetry 08/15/17 08/15/17 08/15/17 02:10 02:12 02:15 Temperature Pulse Rate 93 H 91 H 92 H Respiratory Rate Blood Pressure O2 Sat by Pulse 94 94 95 Oximetry 08/15/17 08/15/17 08/15/17 02:18 02:20 02:23 Temperature Pulse Rate 95 H 94 H 94 H Respiratory Rate Blood Pressure O2 Sat by Pulse 94 94 94 Oximetry 08/15/17 08/15/17 08/15/17 02:25 02:29 02:30 Temperature 98.4 F Pulse Rate 95 H 91 H 115 H Respiratory 20 Rate Blood Pressure O2 Sat by Pulse 94 94 95 Oximetry 08/15/17 08/15/17 08/15/17 02:34 02:35 02:40 Temperature Pulse Rate 94 H 87 96 H Respiratory Rate Blood Pressure O2 Sat by Pulse 94 96 94 Oximetry 08/15/17 08/15/17 08/15/17 02:45 02:50 02:54 Temperature Pulse Rate 97 H 91 H 86 Respiratory Rate Blood Pressure 153/75 O2 Sat by Pulse 94 94 Oximetry 08/15/17 08/15/17 08/15/17 02:55 02:56 03:00 Temperature Pulse Rate 102 H 84 91 H Respiratory Rate Blood Pressure O2 Sat by Pulse 96 94 94 Oximetry 11/08/15/17 08/15/17 03:01 03:05 03:07 Temperature Pulse Rate 85 96 H 93 H Respiratory Rate Blood Pressure O2 Sat by Pulse 94 95 94 Oximetry 08/15/17 08/15/17 08/15/17 03:10 03:12 03:15 Temperature Pulse Rate 92 H 86 85 Respiratory Rate Blood Pressure O2 Sat by Pulse 95 91 96 Oximetry 08/15/17 08/15/17 08/15/17 03:17 03:20 03:25 Temperature Pulse Rate 88 86 89 Respiratory Rate Blood Pressure O2 Sat by Pulse 94 95 94 Oximetry 08/15/17 08/15/17 08/15/17 03:27 03:30 03:33 Temperature Pulse Rate 88 93 H 86 Respiratory Rate Blood Pressure O2 Sat by Pulse 94 94 94 Oximetry 08/15/17 08/15/17 08/15/17 03:54 03:59 04:00 Temperature Pulse Rate 90 71 Respiratory Rate Blood Pressure 162/81 173/79 O2 Sat by Pulse 98 Oximetry 08/15/17 08/15/17 08/15/17 04:01 04:03 04:04 Temperature Pulse Rate 96 H 90 102 H Respiratory Rate Blood Pressure 178/84 178/84 O2 Sat by Pulse 97 Oximetry 08/15/17 08/15/17 08/15/17 04:09 04:14 04:19 Temperature Pulse Rate 102 H 72 84 Respiratory Rate Blood Pressure O2 Sat by Pulse 98 98 96 Oximetry 08/15/17 08/15/17 08/15/17 04:22 04:24 04:29 Temperature Pulse Rate 85 101 H 87 Respiratory Rate Blood Pressure 137/66 O2 Sat by Pulse 97 95 Oximetry 08/15/17 08/15/17 08/15/17 04:34 04:39 04:44 Temperature Pulse Rate 81 78 125 H Respiratory Rate Blood Pressure O2 Sat by Pulse 97 95 96 Oximetry 08/15/17 08/15/17 08/15/17 04:49 04:53 04:54 Temperature Pulse Rate 85 87 81 Respiratory Rate Blood Pressure 148/68 O2 Sat by Pulse 97 96 Oximetry 08/15/17 08/15/17 08/15/17 04:59 05:04 05:09 Temperature Pulse Rate 85 76 92 H Respiratory Rate Blood Pressure O2 Sat by Pulse 97 96 95 Oximetry 08/15/17 08/15/17 08/15/17 05:11 05:14 05:19 Temperature Pulse Rate 93 H 87 81 Respiratory Rate Blood Pressure O2 Sat by Pulse 94 95 96 Oximetry 08/15/17 08/15/17 08/15/17 05:24 05:29 05:36 Temperature Pulse Rate 78 91 H 86 Respiratory Rate Blood Pressure 146/71 148/74 O2 Sat by Pulse 96 95 Oximetry 08/15/17 08/15/17 08/15/17 05:37 05:42 05:47 Temperature Pulse Rate 111 H 82 85 Respiratory Rate Blood Pressure O2 Sat by Pulse 98 97 96 Oximetry 08/15/17 08/15/17 08/15/17 05:52 05:53 05:57 Temperature Pulse Rate 88 91 H 91 H Respiratory Rate Blood Pressure 183/83 O2 Sat by Pulse 97 97 Oximetry 08/15/17 08/15/17 08/15/17 06:02 06:07 06:12 Temperature Pulse Rate 86 74 80 Respiratory Rate Blood Pressure 171/78 176/83 163/75 O2 Sat by Pulse 97 95 95 Oximetry 08/15/17 08/15/17 08/15/17 06:14 06:17 06:22 Temperature Pulse Rate 79 74 98 H Respiratory Rate Blood Pressure 163/75 O2 Sat by Pulse 97 98 Oximetry 08/15/17 08/15/17 08/15/17 06:27 06:32 06:35 Temperature Pulse Rate 94 H 33 L 75 Respiratory Rate Blood Pressure 149/75 O2 Sat by Pulse 98 100 Oximetry 08/15/17 08/15/17 08/15/17 06:37 06:41 06:42 Temperature Pulse Rate 93 H 102 H 90 Respiratory Rate Blood Pressure O2 Sat by Pulse 97 74 L 97 Oximetry 08/15/17 08/15/17 08/15/17 06:47 06:53 06:54 Temperature Pulse Rate 82 80 104 H Respiratory Rate Blood Pressure O2 Sat by Pulse 97 97 75 L Oximetry 08/15/17 08/15/17 08/15/17 06:55 06:58 07:02 Temperature Pulse Rate 96 H 92 H 80 Respiratory Rate Blood Pressure 165/90 165/82 O2 Sat by Pulse 97 Oximetry 08/15/17 08/15/17 08/15/17 07:03 07:08 07:13 Temperature Pulse Rate 74 71 98 H Respiratory Rate Blood Pressure O2 Sat by Pulse 97 97 96 Oximetry 08/15/17 08/15/17 08/15/17 07:15 07:18 07:23 Temperature Pulse Rate 116 H 92 H 73 Respiratory Rate Blood Pressure 168/89 O2 Sat by Pulse 97 98 Oximetry 08/15/17 08/15/17 08/15/17 07:28 07:33 07:35 Temperature Pulse Rate 89 77 85 Respiratory Rate Blood Pressure 166/78 O2 Sat by Pulse 99 100 Oximetry 08/15/17 08/15/17 08/15/17 07:38 07:43 07:48 Temperature Pulse Rate 76 74 83 Respiratory Rate Blood Pressure O2 Sat by Pulse 100 100 100 Oximetry 08/15/17 08/15/17 08/15/17 07:53 07:55 07:58 Temperature Pulse Rate 83 83 80 Respiratory Rate Blood Pressure 171/77 O2 Sat by Pulse 100 99 Oximetry 08/15/17 08/15/17 08/15/17 08:03 08:08 08:13 Temperature Pulse Rate 83 76 84 Respiratory Rate Blood Pressure O2 Sat by Pulse 100 100 98 Oximetry 08/15/17 08/15/17 08:15 08:18 Temperature Pulse Rate 74 88 Respiratory Rate Blood Pressure 169/77 O2 Sat by Pulse 97 Oximetry - Exam Breasts: deferred Cardiovascular: Other (irregular rate ) Lungs: Clear to auscultation Abdomen: Present: soft (obese, gravid ) Uterus: Present: normal (gravid ) FHR: auscultation normal Uterine Contraction Monitor Mode: External Uterine Contraction Pattern: Absent Uterine Tone Measurement Phase: Resting Extremities: edema (trace) - Labs Labs: Abnormal Labs 08/13/17 08/13/17 08/13/17 16:30 18:17 18:17 WBC 11.1 H RBC 3.16 L Hgb 9.9 L Hct 30.0 L [place] % (Auto) 7.8 H [place] # 0.9 H Carbon Dioxide Glucose Uric Acid 8.3 H Lactate Dehydrogenase 210 H Total Protein Albumin Ur Total Protein 24 Hr 3850.00 H Urine Total Protein 350 H 08/15/17 05:01 WBC RBC Hgb Hct Sandoval % (Auto) Sandoval # Carbon Dioxide 20 L Glucose 143 H Uric Acid Lactate Dehydrogenase Total Protein 6.1 L Albumin 3.0 L Ur Total Protein 24 Hr Urine Total Protein Laboratory Results - last 24 hr 08/13/17 08/14/17 08/15/17 16:30 09:03 05:01 Sodium 139 Potassium 4.5 Chloride 105.0 Carbon Dioxide 20 L Anion Gap 19 BUN 12 Creatinine 0.8 Estimated GFR > 60 BUN/Creatinine Ratio 15 Glucose 143 H Calcium 8.8 Phosphorus 3.50 Magnesium 1.70 Total Bilirubin 0.20 AST 35 ALT 23 Alkaline Phosphatase 114 Total Protein 6.1 L Albumin 3.0 L Albumin/Globulin Ratio 1.0 Urine Total Volume 1100 Ur Total Protein 24 Hr 3850.00 H Urine Total Protein 350 H Urine Opiates Screen Presumptive negative Urine Methadone Screen Presumptive negative Ur Barbiturates Screen Presumptive negative Ur Phencyclidine Scrn Presumptive negative Ur Amphetamines Screen Presumptive negative U Benzodiazepines Scrn Presumptive negative Urine Cocaine Screen Presumptive negative U Marijuana (THC) Screen Presumptive negative Drugs of Abuse Note Disclamer
[2017-08-15] MEDS: TYLENOL PO PRN ×3 (08:56→19:22)
[2017-08-15] MEDS: PRENATAL VITAMIN PO SCH (10:09)
[2017-08-15] MEDS: NORMODYNE PO SCH ×2 (10:13→22:29)
[2017-08-15] MEDS: FEOSOL PO SCH ×2 (10:14→22:29)
--- NOTE | 2017-08-15 10:44 | Consultation ---
History of Present Illness Consult date: 08/15/17 Requesting physician: CALI SIMMS Consult reason: chest pain, other (preeclampsia) History of present illness: The pt is a 31 YO female at 27 weeks with a past medical history significant for preeclampsia (10 years ago, resolved with delivery of baby), GERD, kidney donor - now has one kidney. She is previously unknown to our service. She was admitted on 08/13/2017 for extremely elevated BP and was subsequently diagnosed with preeclampsia. She developed chest pain yesterday evening and thus cardiology has been consulted. Pt reports her chest pain as an intermittent, nonexertional, nonradiating substernal and epigastric discomfort that is associated with SOB and nausea. The pain is aggravated by inspiration and palpation of the sternum. She denies any palpitations, vomiting, diaphoresis , dizziness or syncope. She denies any chest pain prior to yesterday evening. She denies any prior cardiac issues or cardiac w/u. Past History Past Medical History: hypertension (gestational) Social history: single. denies: smoking, alcohol abuse, prescription drug abuse Medications and Allergies Allergies Allergy/AdvReac Type Severity Reaction Status Date / Time NSAIDS (Non-Steroidal Allergy Unknown Verified 08/13/17 18:45 Anti-Inflamma Androgenic Anabolic Steroid AdvReac Unknown Verified 04/05/17 18:21 Home Medications Medication Instructions Recorded Confirmed Last Taken Type Metoclopramide [Reglan] 10 mg PO Q6HR #60 tab 04/08/17 08/14/17 08/13/17 Rx Promethazine [Phenergan TAB] 25 mg PO Q6HR PRN #60 tab 04/08/17 08/14/17 Rx Aspirin [Aspirin BABY CHEW TAB] 81 mg PO QDAY 08/14/17 08/14/17 08/13/17 History Omeprazole Magnesium [PriLOSEC] 10 mg PO QDAY 08/14/17 08/14/17 08/13/17 History Active Meds: Active Medications Acetaminophen (Tylenol) 650 mg PO Q4H PRN PRN Reason: Pain MILD(1-3)/Fever >100.5/SPENCER Last Admin: 08/15/17 08:56 Dose: 650 mg Al Hydrox/Mg Hydrox/Simethicone (Alum-Mag Hydrox-Simeth [id number]/5ml) 30 ml PO Q6H PRN PRN Reason: Indigestion Last Admin: 08/15/17 04:03 Dose: 30 ml Diphenhydramine HCl (Benadryl) 25 mg PO Q6H PRN PRN Reason: Itching Docusate Sodium (Colace) 100 mg PO Q12H PRN PRN Reason: Constipation Last Admin: 08/14/17 19:37 Dose: 100 mg Ferrous Sulfate (Feosol) 325 mg PO BID [facility] Last Admin: 08/15/17 10:14 Dose: 325 mg Guaifenesin (Robitussin Dm) 10 ml PO Q6H PRN PRN Reason: Cough Hydralazine HCl (Apresoline) 5 mg IV Q30MIN PRN PRN Reason: Blood Pressure Last Admin: 08/15/17 06:14 Dose: 5 mg Lactated Ringer's (Lactated Ringers) 1,000 mls @ 125 mls/hr IV DIRECT [facility] Last Admin: 08/14/17 21:50 Dose: 125 mls/hr Labetalol HCl (Normodyne) 400 mg PO BID [facility] Last Admin: 08/15/17 10:13 Dose: 400 mg Magnesium Hydroxide (Milk Of Magnesia) 30 ml PO QHS PRN PRN Reason: Laxative Effect Multivitamins/Iron/Calcium ( Vitamin) 1 each PO QDAY [facility] Last Admin: 08/14/17 09:31 Dose: 1 each Ondansetron HCl (Zofran) 4 mg IV Q6H PRN PRN Reason: Nausea And Vomiting Last Admin: 08/14/17 10:24 Dose: 4 mg Pseudoephedrine HCl (Sudafed) 30 mg PO Q4H PRN PRN Reason: Nasal Congestion Senna/Docusate Sodium (Senokot S) 2 tab PO Q12H PRN PRN Reason: Laxative Effect Simethicone (Mylicon) 80 mg PO Q6H PRN PRN Reason: Gas pain Sodium Chloride (Deep Sea) 2 spray NS Q4H PRN PRN Reason: Congestion Witch Jennifer/Glycerin (Tucks Pad) 1 each TP PRN PRN PRN Reason: Hemorrhoids Zolpidem Tartrate (Ambien) 10 mg PO ONCE PRN PRN Reason: Sleep Last Admin: 08/14/17 21:50 Dose: 10 mg Review of Systems Constitutional: no weight loss, no weight gain, no fever, no chills, no sweats Ears, nose, mouth and throat: no ear pain, no nose pain, no sinus pressure, no sinus pain Cardiovascular: chest pain, shortness of breath, high blood pressure, no orthopnea, no palpitations, no rapid/irregular heart beat, no edema, no syncope , no lightheadedness, no paroxysmal nocturnal dyspnea, no leg edema Respiratory: shortness of breath, pain on inspiration, no cough, no congestion, no wheezing Gastrointestinal: nausea, no abdominal pain, no vomiting, no diarrhea, no constipation, no change in bowel habits Genitourinary Female: no pelvic pain, no flank pain, no dysuria, no urinary frequency, no urgency Musculoskeletal: no neck stiffness, no neck pain, no shooting arm pain, no arm numbness/tingling, no low back pain, no shooting leg pain, no leg numbness/ tingling, no redness of joints Integumentary: no rash, no pruritis, no redness, no sores, no wounds Neurological: no head injury, no paralysis, no weakness, no parathesias, no numbness, no tingling, no seizures, no syncope Psychiatric: no anxiety Endocrine: no cold intolerance, no heat intolerance Hematologic/Lymphatic: no easy bruising, no easy bleeding, no lymphadenopathy Allergic/Immunologic: no urticaria, no wheezing, no persistent infections Physical Examination Vital Signs Temp Pulse Resp BP 97.2 F L 71 20 156/94 08/13/17 16:23 08/13/17 16:23 08/13/17 16:23 08/13/17 16:23 General appearance: no acute distress HEENT: Positive: PERRL, Normocephaly, Mucus Membranes Moist Cardiac: Positive: Reg Rate and Rhythm, S1/S2, S3 Lungs: Positive: clear to auscultation Neuro: Positive: Grossly Intact, Cranial Nerve 2-12 Intact Abdomen: Positive: Other () Skin: Positive: Clear. Negative: Rash, Wound Musculoskeletal: No Fluid Collection, No Pain, Normal Range of Motion Extremities: Absent: edema Results 08/13/17 18:17 08/15/17 05:01 Cardiac Enzymes 08/15/17 Range/Units 05:01 AST 35 (5-40) units/L Comprehensive Metabolic Panel 08/15/17 Range/Units 05:01 Sodium 139 (137-145) mmol/L Potassium 4.5 (3.6-5.0) mmol/L Chloride 105.0 (98-107) mmol/L Carbon Dioxide 20 L (22-30) mmol/L BUN 12 (7-17) mg/dL Creatinine 0.8 (0.7-1.2) mg/dL Glucose 143 H (65-100) mg/dL Calcium 8.8 (8.4-10.2) mg/dL AST 35 (5-40) units/L ALT 23 (7-56) units/L Alkaline Phosphatase 114 (35-129) units/L Total Protein 6.1 L (6.3-8.2) g/dL Albumin 3.0 L (3.9-5) g/dL - Imaging and Cardiology Echo: pending EKG: report reviewed, image reviewed EKG interpretations - Telemetry EKG Rhythm: Sinus Rhythm - EKG Sinus rhythms and dysrhythmias: sinus rhythm Assessment and Plan Assessment: Chest pain, atypical - ECG with NAF; Ibeth pending 27 weeks Preeclampsia Renal transplant donor- one kidney Plan: Obtain Ibeth. Repeat EKG. Obtain echo. Optimize anti-hypertensive regimen per primary. Delivery of baby as necessitated per primary. Assessment and plan reviewed with pt at bedside. The patient has been seen in conjunction with Dr. Peters who agrees with the assessment and plan of care.
[2017-08-15 11:04] LABS: Creatine Kinase MB 1.7 ng/mL (0.0-4.0)
[2017-08-15 11:05] LABS: Creatine Kinase 156 units/L (30-135)
[2017-08-15] MEDS: ZOFRAN IV PRN (14:16)
[2017-08-15] MEDS: ROBITUSSIN DM PO PRN (18:00)
[2017-08-15 18:11] LABS: Creatine Kinase MB 2.6 ng/mL (0.0-4.0)
[2017-08-15 18:12] LABS: Creatine Kinase 180 units/L (30-135)
[2017-08-15] MEDS: AMBIEN PO PRN (22:29)
[2017-08-16] MEDS: TYLENOL PO PRN ×2 (07:50→13:08)
[2017-08-16] MEDS: NORMODYNE PO SCH (10:02)
[2017-08-16] MEDS: FEOSOL PO SCH (10:03)
[2017-08-16] MEDS: ROBITUSSIN DM PO PRN (10:03)
[2017-08-16] MEDS: PRENATAL VITAMIN PO SCH (10:04)
--- NOTE | 2017-08-16 10:37 | Progress Note ---
Assessment and Plan A; 1. IUP at 28 0/7 weeks gestation 2. Preeclampsia with severe preeclampsia 3. Cat II tracing 4. Chest pain, neg cardiac enzymes x 2, s.p EKG and echocardiogram 5. Prior CS 6. History of nephectomy 7. Rh negative 8. s/p NICU consult and betamethasone Recommendations: 1. Labetalol increased to 400mg q8hr , titrate to maintain BP 120-160/80-105mmhg 2. Repeat BPP /DILLAN ordered, continuous tracing 3. IV Hydralazine prn SBP>160mmhg or DBP>110mmhg 4. Follow up results of maternal echocardiogram 5. twice weekly CBC, CMP 6. Delivery is recommended at 34 0/7 weeks gestation, sooner if indicated ( non reassuring tracing, eclampsia, uncontrolled maternal HTN, renal failure, HELLP Subjective - Subjective Date of service: 08/16/17 Principal diagnosis: IUP at 28 0/7 weeks , preeclampsia, one kidney Interval history: She had a SPENCER earlier this morning that was 5/10, currently 2/10. Denied visual changes , CP, RUQ pain ,abdominal pain , contractions, LOF Seen by cardiology yesterday Patient reports: new complaints (per HPI ), movement normal, no loss of fluid, no vaginal bleeding, no contractions Objective - Vital Signs Vital Signs: Vital Signs - 12hr 08/15/17 08/15/17 08/15/17 22:29 22:33 22:38 Pulse Rate 92 H 94 H 100 H Blood Pressure 167/81 O2 Sat by Pulse 98 98 Oximetry 08/15/17 08/15/17 08/15/17 22:43 22:48 22:53 Pulse Rate 97 H 102 H 85 Blood Pressure O2 Sat by Pulse 97 97 97 Oximetry 08/15/17 08/15/17 08/15/17 22:58 23:03 23:08 Pulse Rate 84 104 H 92 H Blood Pressure O2 Sat by Pulse 98 98 96 Oximetry 08/15/17 08/15/17 08/15/17 23:13 23:18 23:23 Pulse Rate 93 H 94 H 94 H Blood Pressure O2 Sat by Pulse 96 97 98 Oximetry 08/15/17 08/15/17 08/15/17 23:28 23:33 23:38 Pulse Rate 89 94 H 92 H Blood Pressure O2 Sat by Pulse 99 98 98 Oximetry 08/15/17 08/15/17 08/15/17 23:43 23:48 23:53 Pulse Rate 93 H 93 H 86 Blood Pressure O2 Sat by Pulse 98 98 99 Oximetry 08/15/17 08/16/17 08/16/17 23:58 00:03 00:08 Pulse Rate 94 H 94 H 99 H Blood Pressure O2 Sat by Pulse 98 98 98 Oximetry 08/16/17 08/16/17 08/16/17 00:13 00:18 01:13 Pulse Rate 95 H 96 H 101 H Blood Pressure 159/90 O2 Sat by Pulse 98 98 Oximetry 08/16/17 08/16/17 08/16/17 01:59 02:59 03:59 Pulse Rate 95 H 79 89 Blood Pressure 179/87 154/80 144/69 O2 Sat by Pulse Oximetry 08/16/17 08/16/17 08/16/17 04:50 04:55 04:59 Pulse Rate 80 75 85 Blood Pressure 170/86 O2 Sat by Pulse 97 96 Oximetry 08/16/17 08/16/17 08/16/17 05:00 05:05 05:10 Pulse Rate 104 H 95 H 74 Blood Pressure O2 Sat by Pulse 97 96 97 Oximetry 08/16/17 08/16/17 08/16/17 05:15 05:16 05:20 Pulse Rate 76 99 H 78 Blood Pressure O2 Sat by Pulse 97 93 95 Oximetry 08/16/17 08/16/17 08/16/17 05:25 05:30 05:35 Pulse Rate 73 97 H 73 Blood Pressure O2 Sat by Pulse 96 98 97 Oximetry 08/16/17 08/16/17 08/16/17 05:40 05:45 05:50 Pulse Rate 78 104 H 81 Blood Pressure O2 Sat by Pulse 96 97 96 Oximetry 08/16/17 08/16/17 08/16/17 05:55 05:59 06:00 Pulse Rate 86 100 H 77 Blood Pressure 155/75 O2 Sat by Pulse 96 97 Oximetry 08/16/17 08/16/17 08/16/17 06:05 06:10 06:15 Pulse Rate 82 82 76 Blood Pressure O2 Sat by Pulse 96 96 97 Oximetry 08/16/17 08/16/17 08/16/17 06:17 06:20 06:25 Pulse Rate 103 H 84 83 Blood Pressure O2 Sat by Pulse 87 96 95 Oximetry 08/16/17 08/16/17 08/16/17 06:30 06:35 06:40 Pulse Rate 76 76 88 Blood Pressure O2 Sat by Pulse 96 96 96 Oximetry 08/16/17 08/16/17 08/16/17 06:45 06:49 06:50 Pulse Rate 77 91 H 76 Blood Pressure O2 Sat by Pulse 96 91 97 Oximetry 08/16/17 08/16/17 08/16/17 06:55 07:00 07:05 Pulse Rate 89 84 78 Blood Pressure 183/86 O2 Sat by Pulse 90 100 97 Oximetry 08/16/17 08/16/17 08/16/17 07:10 07:14 07:16 Pulse Rate 80 79 78 Blood Pressure 168/77 153/78 O2 Sat by Pulse 98 Oximetry 08/16/17 08/16/17 08/16/17 08:29 08:30 10:02 Pulse Rate 82 78 80 Blood Pressure 176/101 162/89 179/97 O2 Sat by Pulse Oximetry 08/16/17 08/16/17 10:03 10:04 Pulse Rate 78 80 Blood Pressure 180/93 179/97 O2 Sat by Pulse Oximetry - Exam Narrative Exam: NAD laying in bed , on phone Abdomen: Present: normal appearance, soft Uterus: Present: normal FHR: category 2 (minimal variability, spontaneous deceleration noted at 6am , accelerations present however non >10x10) Uterine Contraction Monitor Mode: External (absent) Extremities: normal Deep Tendon Reflex Grade: Normal +2 - Labs Labs: Abnormal Labs 08/13/17 08/13/17 08/13/17 16:30 18:17 18:17 WBC 11.1 H RBC 3.16 L Hgb 9.9 L Hct 30.0 L Cochran % (Auto) 7.8 H Cochran # 0.9 H Carbon Dioxide Glucose Uric Acid 8.3 H Lactate Dehydrogenase 210 H Total Creatine Kinase Total Protein Albumin Ur Total Protein 24 Hr 3850.00 H Urine Total Protein 350 H 08/15/17 08/15/17 08/15/17 05:01 05:01 17:28 WBC RBC Hgb Hct Cochran % (Auto) Cochran # Carbon Dioxide 20 L Glucose 143 H Uric Acid Lactate Dehydrogenase Total Creatine Kinase 156 H 180 H Total Protein 6.1 L Albumin 3.0 L Ur Total Protein 24 Hr Urine Total Protein Laboratory Results - last 24 hr 08/15/17 08/15/17 05:01 17:28 Total Creatine Kinase 156 H 180 H CK-MB (CK-2) 1.7 2.6 CK-MB (CK-2) Rel Index 1.0 1.4 Troponin T < 0.010 < 0.010
--- NOTE | 2017-08-16 10:58 | Event Note ---
Date: 08/16/17 The patient has no new cardiac complaints. She is in no acute distress. chest pain has resolved. Blood pressure remains elevated On exam the lungs are clear to auscultation. Cardiac rhythm is regular. No murmur audible. Abdomen is soft and compatible with gestational age The echocardiogram was unremarkable the ECG unremarkable and the cardiac enzymes are negative. Plan: mgt per ob. no new card rec. will see prn
--- NOTE | 2017-08-16 10:59 | Progress Note ---
Assessment and Plan S/p Lt Nephrectomy, Transplant donor to [facility] 2010 - Stable functional single Rt kidney. Continue f/u HTN - Optimize control, add Hydralazine Pre-eclampsia - F/u Proteinuria. No seizure Subjective Date of service: 08/16/17 Principal diagnosis: IUP at 28 0/7 weeks , preeclampsia, one kidney Interval history: No complaints Objective - Vital Signs Vital signs: Vital Signs - 12hr 08/15/17 08/15/17 08/15/17 22:58 23:03 23:08 Pulse Rate 84 104 H 92 H Blood Pressure O2 Sat by Pulse 98 98 96 Oximetry 08/15/17 08/15/17 08/15/17 23:13 23:18 23:23 Pulse Rate 93 H 94 H 94 H Blood Pressure O2 Sat by Pulse 96 97 98 Oximetry 08/15/17 08/15/17 08/15/17 23:28 23:33 23:38 Pulse Rate 89 94 H 92 H Blood Pressure O2 Sat by Pulse 99 98 98 Oximetry 08/15/17 08/15/17 08/15/17 23:43 23:48 23:53 Pulse Rate 93 H 93 H 86 Blood Pressure O2 Sat by Pulse 98 98 99 Oximetry 08/15/17 08/16/17 08/16/17 23:58 00:03 00:08 Pulse Rate 94 H 94 H 99 H Blood Pressure O2 Sat by Pulse 98 98 98 Oximetry 08/16/17 08/16/17 08/16/17 00:13 00:18 01:13 Pulse Rate 95 H 96 H 101 H Blood Pressure 159/90 O2 Sat by Pulse 98 98 Oximetry 08/16/17 08/16/17 08/16/17 01:59 02:59 03:59 Pulse Rate 95 H 79 89 Blood Pressure 179/87 154/80 144/69 O2 Sat by Pulse Oximetry 08/16/17 08/16/17 08/16/17 04:50 04:55 04:59 Pulse Rate 80 75 85 Blood Pressure 170/86 O2 Sat by Pulse 97 96 Oximetry 08/16/17 08/16/17 08/16/17 05:00 05:05 05:10 Pulse Rate 104 H 95 H 74 Blood Pressure O2 Sat by Pulse 97 96 97 Oximetry 08/16/17 08/16/17 08/16/17 05:15 05:16 05:20 Pulse Rate 76 99 H 78 Blood Pressure O2 Sat by Pulse 97 93 95 Oximetry 08/16/17 08/16/17 08/16/17 05:25 05:30 05:35 Pulse Rate 73 97 H 73 Blood Pressure O2 Sat by Pulse 96 98 97 Oximetry 08/16/17 08/16/17 08/16/17 05:40 05:45 05:50 Pulse Rate 78 104 H 81 Blood Pressure O2 Sat by Pulse 96 97 96 Oximetry 08/16/17 08/16/17 08/16/17 05:55 05:59 06:00 Pulse Rate 86 100 H 77 Blood Pressure 155/75 O2 Sat by Pulse 96 97 Oximetry 08/16/17 08/16/17 08/16/17 06:05 06:10 06:15 Pulse Rate 82 82 76 Blood Pressure O2 Sat by Pulse 96 96 97 Oximetry 08/16/17 08/16/17 08/16/17 06:17 06:20 06:25 Pulse Rate 103 H 84 83 Blood Pressure O2 Sat by Pulse 87 96 95 Oximetry 08/16/17 08/16/17 08/16/17 06:30 06:35 06:40 Pulse Rate 76 76 88 Blood Pressure O2 Sat by Pulse 96 96 96 Oximetry 08/16/17 08/16/17 08/16/17 06:45 06:49 06:50 Pulse Rate 77 91 H 76 Blood Pressure O2 Sat by Pulse 96 91 97 Oximetry 08/16/17 08/16/17 08/16/17 06:55 07:00 07:05 Pulse Rate 89 84 78 Blood Pressure 183/86 O2 Sat by Pulse 90 100 97 Oximetry 08/16/17 08/16/17 08/16/17 07:10 07:14 07:16 Pulse Rate 80 79 78 Blood Pressure 168/77 153/78 O2 Sat by Pulse 98 Oximetry 08/16/17 08/16/17 08/16/17 08:29 08:30 10:02 Pulse Rate 82 78 80 Blood Pressure 176/101 162/89 179/97 O2 Sat by Pulse Oximetry 08/16/17 08/16/17 08/16/17 10:03 10:04 10:53 Pulse Rate 78 80 82 Blood Pressure 180/93 179/97 183/92 O2 Sat by Pulse Oximetry - General Appearance General appearance: other (Awake & alert, in no distress) Neck: no JVD Respiratory: Present: Other (Good air entry) Cardiology: regular, S1S2 Gastrointestinal: other (Soft) - Lab 08/13/17 18:17 08/15/17 05:01 Most recent lab results Calcium 8.8 mg/dL (8.4-10.2) 08/15/17 05:01 Phosphorus 3.50 mg/dL (2.5-4.5) 08/15/17 05:01 Magnesium 1.70 mg/dL (1.7-2.3) 08/15/17 05:01 Ur Total Protein 24 Hr 3850.00 (2-200) H 08/13/17 16:30 Urine Total Protein 350 mg/dL (5-11.8) H 08/13/17 16:30
[2017-08-16] MEDS: APRESOLINE IV PRN (11:00)
[2017-08-16] MEDS ORDERED: APRESOLINE IV ONE (11:20)
--- NOTE | 2017-08-16 12:02 | Ultrasound Report ---
BIOPHYSICAL PROFILE: 08/13/17 16:52:00 CLINICAL: [facility] FINDINGS: The biophysical profile was scored as followin - breathing movements 2 - movements 2 - posture and tone 2 - Qualitative amniotic fluid volume 8 - TOTAL SCORE OF POSSIBLE 8 Heart Rate (bpm) = 164 IMPRESSION: Normal study
--- NOTE | 2017-08-16 12:09 | Ultrasound Report ---
OB ULTRASOUND LIMITED: 08/16/17 CLINICAL: well [facility]. FINDINGS: Gestation: Bass Position: Cephalic. Amniotic Fluid: Normal DILLAN = 9.7 cm Heart Rate: 148 BPM IMPRESSION: Single live intrauterine fetus at 28 weeks based on clinical dating.
--- NOTE | 2017-08-16 12:23 | Anesthesia Consultation ---
Anesthesia Consult and Med Hx Date of service: 08/16/17 - Airway Anesthetic Teeth Evaluation: Good ROM Head & Neck: Adequate Mental/Hyoid Distance: Adequate Mallampati Class: Class II Intubation Access Assessment: Probably Good - Pulmonary Exam CTA: Yes - Cardiac Exam Cardiac Exam: RRR - Pre-Operative Health Status ASA Pre-Surgery Classification: ASA2 Proposed Anesthetic Plan: Epidural - Pulmonary Hx Smoking: No Hx Asthma: No COPD: No Hx Pneumonia: No Hx Sleep Apnea: No - Cardiovascular System Hx Hypertension: No Hx Heart Attack/AMI: No - Central Nervous System Hx Seizures: No Hx Psychiatric Problems: No - Endocrine Hx Renal Disease: No (1 kidney, donated 2nd kidney in 2010) Hx End Stage Renal Disease: No Hx Hypothyroidism: No Hx Hyperthyroidism: No - Hematic Hx Anemia: No Hx Sickle Cell Disease: No - Other Systems Hx Alcohol Use: No Hx Cancer: No
--- NOTE | 2017-08-16 12:24 | Anesthesia Day of Surgery ---
Anesthesia Day of Surgery - Day of Surgery Patient Examined: Yes Patient is NPO: No (cereal at 09:00. will proceed due to urgency of case)
[2017-08-16] MEDS ORDERED: BICITRA PO ONE (13:00)
[2017-08-16] MEDS ORDERED: ANCEF/STERILE WATER 2 GM/20 ML 2 GM/20 ML SYRINGE IV NR (13:00)
[2017-08-16] MEDS ORDERED: PITOCin/NS 20 UNIT/1000ML DRIP 20 UNITS/1,000 ML BAG IV SCH ×2 (13:00→18:45)
[2017-08-16] MEDS ORDERED: REGLAN IV ONE (13:00)
[2017-08-16] MEDS ORDERED: PEPCID IV ONE (13:00)
[2017-08-16] MEDS: LACTATED RINGERS 1,000 ML IV SCH ×2 (13:25→13:55)
[2017-08-16] MEDS ORDERED: NORMODYNE PO SCH (14:00)
[2017-08-16] MEDS ORDERED: APRESOLINE PO SCH (14:00)
[2017-08-16] MEDS ORDERED: MORPHINE ONE (14:08)
[2017-08-16] MEDS ORDERED: SUBLIMAZE ONE (14:08)
--- NOTE | 2017-08-16 14:12 | Consultation ---
History of Present Illness Consult date: 08/16/17 Reason for consult: prematurity History of present illness: Patient is a 31 year old with history of abruption and demise, with severe PIH at 28 weeks gestation. Delivery is planned via for poorly controlled maternal blood pressure Survival without significant co-morbidities at 28 weeks gestation is approx 90% [place] Documentation - Maternal Info Maternal Blood Type: O (-) negative HbsAg: Negative HIV: Negative RPR/VDRL: Non-reactive Chlamydia: Negative Gonorrhea: Negative Herpes: Positive Rubella: Immune - information: Height 5 ft 4 in Medications and Allergies Allergies Allergy/AdvReac Type Severity Reaction Status Date / Time NSAIDS (Non-Steroidal Allergy Unknown Verified 08/13/17 18:45 Anti-Inflamma Androgenic Anabolic Steroid AdvReac Unknown Verified 04/05/17 18:21 Home Medications Medication Instructions Recorded Confirmed Last Taken Type Metoclopramide [Reglan] 10 mg PO Q6HR #60 tab 04/08/17 08/14/17 08/13/17 Rx Promethazine [Phenergan TAB] 25 mg PO Q6HR PRN #60 tab 04/08/17 08/14/17 Rx Aspirin [Aspirin BABY CHEW TAB] 81 mg PO QDAY 08/14/17 08/14/17 08/13/17 History Omeprazole Magnesium [PriLOSEC] 10 mg PO QDAY 08/14/17 08/14/17 08/13/17 History Active Meds: Active Medications Acetaminophen (Tylenol) 650 mg PO Q4H PRN PRN Reason: Pain MILD(1-3)/Fever >100.5/SPENCER Last Admin: 08/16/17 13:08 Dose: 650 mg Al Hydrox/Mg Hydrox/Simethicone (Alum-Mag Hydrox-Simeth [phone]/5ml) 30 ml PO Q6H PRN PRN Reason: Indigestion Last Admin: 08/15/17 18:44 Dose: 30 ml Diphenhydramine HCl (Benadryl) 25 mg PO Q6H PRN PRN Reason: Itching Docusate Sodium (Colace) 100 mg PO Q12H PRN PRN Reason: Constipation Last Admin: 08/14/17 19:37 Dose: 100 mg Ferrous Sulfate (Feosol) 325 mg PO BID [facility] Last Admin: 08/16/17 10:03 Dose: 325 mg Guaifenesin (Robitussin Dm) 10 ml PO Q6H PRN PRN Reason: Cough Last Admin: 08/16/17 10:03 Dose: 10 ml Hydralazine HCl (Apresoline) 5 mg IV Q30MIN PRN PRN Reason: Blood Pressure Last Admin: 08/16/17 11:00 Dose: 5 mg Hydralazine HCl (Apresoline) 50 mg PO Q8HR [facility] Lactated Ringer's (Lactated Ringers) 1,000 mls @ 125 mls/hr IV DIRECT [facility] Last Admin: 08/14/17 21:50 Dose: 125 mls/hr Lactated Ringer's (Lactated Ringers) 1,000 mls @ 2,250 mls/hr IV PREOP [facility] Stop: 08/17/17 13:27 Last Admin: 08/16/17 13:55 Dose: 2,250 mls/hr Oxytocin/Sodium Chloride (Pitocin/Ns 20 Unit/1000ml Drip) 20 units in 1,000 mls @ 0 mls/hr IV TITR [facility] PRN Reason: As Directed Cefazolin Sodium (Ancef/Sterile Water 2 Gm/20 Ml) 2 gm in 20 mls @ 80 mls/hr IV PREOP NR PRN Reason: Protocol Stop: 08/16/17 23:59 Labetalol HCl (Normodyne) 400 mg PO TID [facility] Magnesium Hydroxide (Milk Of Magnesia) 30 ml PO QHS PRN PRN Reason: Laxative Effect Multivitamins/Iron/Calcium ( Vitamin) 1 each PO QDAY [facility] Last Admin: 08/16/17 10:04 Dose: Not Given Ondansetron HCl (Zofran) 4 mg IV Q6H PRN PRN Reason: Nausea And Vomiting Last Admin: 08/15/17 14:16 Dose: 4 mg Senna/Docusate Sodium (Senokot S) 2 tab PO Q12H PRN PRN Reason: Laxative Effect Simethicone (Mylicon) 80 mg PO Q6H PRN PRN Reason: Gas pain Sodium Chloride (Deep Sea) 2 spray NS Q4H PRN PRN Reason: Congestion Witch Jennifer/Glycerin (Tucks Pad) 1 each TP PRN PRN PRN Reason: Hemorrhoids Zolpidem Tartrate (Ambien) 10 mg PO ONCE PRN PRN Reason: Sleep Last Admin: 08/15/17 22:29 Dose: 10 mg Exam Vital Signs Temp Pulse Resp BP 97.2 F L 71 20 156/94 08/13/17 16:23 08/13/17 16:23 08/13/17 16:23 08/13/17 16:23 Temp Pulse Resp BP Pulse Ox 97.6 F 100 H 20 139/75 98 08/16/17 13:00 08/16/17 13:09 08/16/17 13:00 08/16/17 13:09 08/16/17 07:10 Results - Laboratory Findings 08/13/17 18:17 08/15/17 05:01 Abnormal lab results 08/15/17 Range/Units 17:28 Total Creatine Kinase 180 H (30-135) units/L Assessment and Plan Spoke with mother and about the need for NICU admission, central lines ( UVC, UAC), supportive ventilation (invasive/non-invasive), Head ultrasounds and the risk of IVH and infections due to prematurity. She demonstrated understanding of information provided NICU will attend delivery Call NICU with questions Time spent for consult: approx 20 mins, with majority of the time spent counselling the patient
--- NOTE | 2017-08-16 14:16 | Event Note ---
Date: 08/16/17 Received call from [facility] this morning stating that patient's strip was less than reassurring and that BPP had been ordered. REsult of BPP was 03/01. Patient continued to have blood pressures in the 160-180 range. As infant has received 2 doses of steroids, will proceed with urgent .
[2017-08-16] MEDS ORDERED: NACL 0.9% IR ONE (15:02)
[2017-08-16] MEDS ORDERED: WATER FOR IRRIG STERILE IR ONE (15:03)
[2017-08-16] MEDS ORDERED: NARCAN 0.4 MG/1 ML IV PRN ×2 (15:38→18:45)
[2017-08-16] MEDS ORDERED: ZOFRAN IV PRN (15:38)
[2017-08-16] MEDS ORDERED: DILAUDID PCA 6MG/30ML IV SCH (16:00)
[2017-08-16] MEDS ORDERED: DILAUDID IV ONE ×2 (16:40→16:42)
[2017-08-16] MEDS ORDERED: TUCKS PAD TP PRN (18:45)
[2017-08-16] MEDS ORDERED: SODIUM CHLORIDE FLUSH SYRINGE 10 ML IV NR (18:45)
[2017-08-16] MEDS ORDERED: D5LR 1,000 ML IV SCH (18:45)
[2017-08-16] MEDS: MAGNESIUM SULFATE 40GM/1000ML 40 GM/1,000 ML BAG IV SCH (19:47)
[2017-08-16] MEDS: BENADRYL IV PRN (22:20)
[2017-08-17 05:19] LABS: Hematocrit 32.1 % (30.3-42.9); Hemoglobin 10.5 gm/dl (10.1-14.3)
[2017-08-17] MEDS ORDERED: PROCARDIA XL PO ONE (07:53)
[2017-08-17] MEDS: PROCARDIA XL PO SCH ×2 (07:56→19:45)
[2017-08-17] MEDS: LACTATED RINGERS 1,000 ML IV SCH (08:01)
[2017-08-17] MEDS: BENADRYL IV PRN ×2 (08:04→16:34)
[2017-08-17] MEDS: FEOSOL PO SCH ×2 (08:05→22:03)
[2017-08-17] MEDS: PRENATAL VITAMIN PO SCH (08:05)
[2017-08-17] MEDS: PERCOCET 5/325 PO PRN ×3 (11:46→22:03)
[2017-08-17] MEDS: MAGNESIUM SULFATE 40GM/1000ML 40 GM/1,000 ML BAG IV SCH (14:40)
--- NOTE | 2017-08-17 18:14 | Progress Note ---
Subjective Date of service: 08/17/17 Principal diagnosis: IUP at 28 0/7 weeks , preeclampsia, one kidney Interval history: No anesthetic related complaints. Objective - Constitutional Vitals: Vital Signs - 12hr 08/17/17 08/17/17 08/17/17 08:42 10:30 11:46 Temperature 98.6 F 98.3 F Pulse Rate 97 H 102 H Respiratory 18 20 20 Rate Blood Pressure 153/95 Blood Pressure 140/80 [Left] O2 Sat by Pulse 97 Oximetry 08/17/17 08/17/17 08/17/17 12:33 14:30 16:30 Temperature 98.0 F 98.5 F Pulse Rate 104 H 98 H 111 H Respiratory 18 18 Rate Blood Pressure 143/91 Blood Pressure 137/89 125/78 [Left] O2 Sat by Pulse 83 L 96 Oximetry 08/17/17 17:37 Temperature Pulse Rate Respiratory 20 Rate Blood Pressure Blood Pressure [Left] O2 Sat by Pulse Oximetry - Labs CBC & Chem 7: 08/17/17 04:39 08/15/17 05:01 Labs: Abnormal lab results 08/17/17 08/17/17 Range/Units 04:39 12:43 Magnesium 4.80 H 5.60 H (1.7-2.3) mg/dL
[2017-08-17] MEDS: SENOKOT S PO SCH (22:03)
[2017-08-18] MEDS: BENADRYL IV PRN (01:24)
[2017-08-18] MEDS: PERCOCET 5/325 PO PRN ×4 (04:00→22:40)
[2017-08-18] MEDS: FEOSOL PO SCH ×2 (11:02→21:52)
[2017-08-18] MEDS: PROCARDIA XL PO SCH ×2 (11:03→21:52)
[2017-08-18] MEDS: SENOKOT S PO SCH ×2 (11:03→21:52)
--- NOTE | 2017-08-18 19:22 | Progress Note ---
Assessment and Plan POD 2 s/p ltcs. Doing well. Plan for dishcharge on tomorrow. Ambulating, tolerating po Subjective - Subjective Date of service: 08/18/17 Principal diagnosis: IUP at 28 0/7 weeks , preeclampsia, one kidney Patient reports: appetite normal, voiding normally, pain well controlled, ambulating normally [place]: in NICU Objective - Vital Signs Latest vital signs: Vital Signs Temp Pulse Resp BP 08/18/17 16:37 98.5 F 119 H 20 119/59 08/18/17 11:48 98.5 F 109 H 20 121/71 08/18/17 07:52 98.7 F 114 H 20 113/60 08/18/17 05:18 98.2 F 115 H 20 111/64 08/18/17 05:00 18 08/18/17 04:00 18 08/18/17 00:35 98.9 F 118 H 20 111/55 08/17/17 23:03 18 08/17/17 22:03 18 08/17/17 21:45 98.5 F 08/17/17 19:46 117 H 16 111/57 Intake and Output 08/18/17 08/18/17 08/18/17 06:59 14:59 22:59 Intake Total 240 600 120 Output Total 700 775 625 Balance -460 -175 -505 Intake: Oral 600 120 Intake, Free Water 240 Output: Urine 700 775 625 Void 700 775 625 Other: Total, Intake Amount 240 120 Total, Output Amount 700 500 625 - Exam Cardiovascular: Present: Regular rate, Normal S1, Normal S2 Lungs: Present: Clear to auscultation, Normal air movement Abdomen: Present: normal appearance, soft, normal bowel sounds Uterus: Present: normal, firm Extremities: Present: normal Deep Tendon Reflex Grade: Normal +2 Incision: Present: normal, dry, intact
--- NOTE | 2017-08-18 19:26 | Discharge Summary ---
Providers - Providers Date of Admission: 08/13/17 16:52 Date of discharge: 08/19/17 Attending physician: RUPERT OHARA MD Primary care physician: RUPERT OHARA MD Hospitalization Reason for admission: section Delivery: Procedure: repeat low transverse Episiotomy: none Incision: normal, dry, intact complications: none Discharge diagnosis: IUP at term delivered [place] baby: female Condition at discharge: Good Disposition: DC-01 TO HOME OR SELFCARE Plan - Discharge Medications Prescriptions: Ibuprofen [Motrin] 800 mg PO Q8HR PRN #40 tablet PRN Reason: Pain NIFEdipine XL [Procardia Xl] 60 mg PO Q12HR #60 tablet oxyCODONE /ACETAMINOPHEN [Percocet 5/325 mg] 2 tab PO Q6H PRN #50 tablet PRN Reason: Pain, Moderate (4-6) - Provider Discharge Summary Activity: routine, no sex for 6 weeks, no heavy lifting 4 weeks, no strenuous exercise Diet: routine Instructions: routine Additional instructions: [] Smoking cessation referral if applicable(refer to patient education folder for contact #) [] Refer to [facility] Booklet Call your doctor immediately for: * Fever > 100.5 * Heavy vaginal bleeding ( >1 pad per hour) * Severe persistent headache * Shortness of breath * Reddened, hot, painful area to leg or breast * Drainage or odor from incision. * Keep incision clean and dry at all times and follow doctor's instructions regarding bathing/showering - Follow up plan Follow up: RUPERT OHARA MD [Primary Care Provider] - 7 Days
[2017-08-18] MEDS ORDERED: AMBIEN PO PRN (21:22)
[2017-08-18] MEDS ORDERED: TRIPLE ANTIBIOTIC TP SCH (22:00)
[2017-08-19] MEDS: BENADRYL IV PRN (00:49)
[2017-08-19] MEDS: PERCOCET 5/325 PO PRN ×2 (04:17→12:54)
[2017-08-19] MEDS ORDERED: BOOSTRIX IM ONE (06:00)
[2017-08-19] MEDS ORDERED: Fluarix Quad 2017-2018(36 MOS+ IM ONE (12:00)
--- NOTE | 2017-08-19 12:13 | Operative Report ---
Operative Report Operative Report: The operative report for patient Marisa Vences Date of service 08/16/2017 Preoperative diagnosis: Intrauterine at 28 weeks 2. Severe preeclampsia 3 nonreassuring heart tones 4. Undesired fertility Postoperative diagnosis: Same Procedure: Repeat low transverse section with bilateral tubal ligation Surgeon: Dr. Oliva Natarajan EBL: 700 Urine output: 100 IV fluids: 1100 Findings: Viable female in the vertex occiput anterior position. Weight 2 lbs. 4 oz. Apgars 5 and 8]. Otherwise normal pelvic anatomy Specimens: None Complications: None Procedure: The patient was admitted to the OR with IV running and in place. She was properly identified as herself. Spinal anesthesia was placed in the OR without difficulty. She was placed in the dorsal supine position with a leftward tilt. A Farias catheter was inserted. She was then prepped and draped in the normal sterile fashion. An Allis test was used to confirm adequate anesthesia. Once confirmed, the incision was made with the scalpel and carried to the underlying fascia using the scalpel and the Bovie. The fascia was incised in the midline and incision was extended bilaterally using the curved Blair scissors. The fascia was then dissected from the underlying rectus muscles in a series of sharp and blunt dissection using the Blair scissors. Muscles were in the in the midline sharply using Metzenbaum scissors and the peritoneum was entered into bluntly using the surgeon's fingers. A bladder blade was then placed into the incision to protect the bladder. Following this the bladder flap was created. Hysterotomy incision was then made in the scalpel. Upon uterine entry, the amniotic sac was ruptured for clear fluid. The was then delivered in the occiput anterior position. Her mouth and nose were suctioned on the field. The cord was clamped and cut after 45 seconds and she was handed to the waiting NICU personnel. The uterus was then exteriorized and cleared of all clots and debris. The hysterotomy incision was then closed in a running locked fashion using 0 Vicryl. The abdomen was then copiously irrigated with warm normal saline. Attention was then turned to the patient's fallopian tubes. Each tube was grasped with a [place]. Tubal ligation was performed in the Auxier style. Following this the uterus was replaced into the abdominal cavity. At this point the muscles were reapproximated in the midline using individual sutures of 0 Vicryl. Following this the fascia was closed in a running fashion using 0 Vicryl. Tissue was then copiously irrigated. . Skin was closed in a running fashion using 3-0 Monocryl. The sponge lap needle and instrument counts were correct 2. The patient tolerated the procedure well. She was taken to recovery in stable condition.
[2017-08-19] MEDS: FEOSOL PO SCH (12:54)
[2017-08-19] MEDS: PROCARDIA XL PO SCH (12:54)
[2017-08-19 16:06] VITALS: BP 148/76
== END 2017-08-19 16:00 | disposition home or self-care (01) | DRG 765 ==
LOC: TRG 15:29 → LD 15:30 → TRG 16:52 → OB 08-16 18:42
PROVIDERS: ADMIT Obstetrics & Gynecology; ATTEND Obstetrics & Gynecology
PROC: 10D00Z1 Extraction of Products of Conception, Low, Open Approach (ICD-10-PCS; principal; 2017-08-16)
PROC: 0UT70ZZ Resection of Bilateral Fallopian Tubes, Open Approach (ICD-10-PCS; 2017-08-16)
PROC: 30233S1 Transfusion of Nonautologous Globulin into Peripheral Vein, Percutaneous Approach (ICD-10-PCS; 2017-08-16)
PROC: 3E0234Z Introduction of Serum, Toxoid and Vaccine into Muscle, Percutaneous Approach (ICD-10-PCS; 2017-08-19)
DX: O34.211 Maternal care for low transverse scar from previous cesarean delivery (principal); O11.4 Pre-existing hypertension with pre-eclampsia, complicating childbirth; Q60.0 Renal agenesis, unilateral; O99.62 Diseases of the digestive system complicating childbirth; K21.9 Gastro-esophageal reflux disease without esophagitis; R07.89 Other chest pain; O76 Abnormality in fetal heart rate and rhythm complicating labor and delivery; Z3A.27 27 weeks gestation of pregnancy; Z37.0 Single live birth; Z23 Encounter for immunization; Z90.5 Acquired absence of kidney; Z30.2 Encounter for sterilization; Z79.899 Other long term (current) drug therapy
CPT/HCPCS: 36415; 71010; 76815; 76819; 80053; 80307; 81001; 82550; 82553; 82565; 83615; 83735; 84100; 84156; 84450; 84460; 84484; 84550; 85014; 85018; 85025; 86850; 86900; 86901; 88302; 88305; 90471; 90686; 90715; 93005; 93010; 93306; 99211; A6250; G0463; J0360; J0690; J0702; J1170; J1200; J2270; J2405; J2590; J2765; J2790; J3010; J3475; J7120; J7121

== ENCOUNTER 2022-03-13 15:09 | Outpatient (CLI) | payer OTHER ==
--- NOTE | 2022-03-13 16:52 | XRay Report ---
Right knee 2 views INDICATION: Right knee pain FINDINGS: Alignment appears normal. No acute fracture or dislocation is seen. No large joint effusion . IMPRESSION: No acute findings. Signer Name: Nilo Mota MD Signed: 03/13/2022 4:47 PM Workstation Name: [email or web address]
--- NOTE | 2022-03-13 17:32 | XRay Report ---
Lumbar spine 3 views INDICATION: Back pain FINDINGS: Alignment appears normal. No compression fractures seen. Visualized sacrum appears normal. IMPRESSION: No acute findings. Signer Name: Nilo Mota MD Signed: 03/13/2022 5:27 PM Workstation Name: [email or web address]
--- NOTE | 2022-03-13 17:36 | XRay Report ---
Pelvis one view INDICATION: Pelvic pain FINDINGS: Bilateral femoral heads well-seated in the acetabulum. Sacrum and sacroiliac joints appear normal. Superior and inferior pubic rami appear normal. IMPRESSION: No acute findings. Signer Name: Nilo Mota MD Signed: 03/13/2022 5:32 PM Workstation Name: [id number]
== END 2022-03-13 15:10 | disposition home or self-care (01) ==
LOC: XRAY 15:09
PROVIDERS: ATTEND Internal Medicine
DX: M54.50 Low back pain, unspecified (principal); M25.561 Pain in right knee; R10.2 Pelvic and perineal pain
CPT/HCPCS: 72100; 72170